=== PATIENT | male | born 1965 | race Caucasian/White ===

== ENCOUNTER 2018-11-22 09:31 | Inpatient (IN) | payer MEDICARE ==
[~2018-11-22] VITALS: Ht 182.9 cm; Wt 183.7 kg
--- OUTSIDE RECORDS SUMMARY | 2018-11-22 09:33 | XMS REPORT ---
Author Author Benjamin Gayle Organization [employer] Address Unknown Phone Unavailable Care Team Providers Care Social Worker Delinquency Prevention Name Role Phone Benjamin Gayle CP Unavailable Allergies, Adverse Reactions, Alerts Substance Reaction Event Type N.K.D.A. Info Not Available Non Drug Allergy Problems Problem Type Condition Code Onset Dates Condition Status Assessment Type 2 diabetes mellitus without complication, without long-term current use of insulin E11.9 Active Assessment Benign hypertension I10 Active Assessment BMI 50.0-59.9, adult Z68.43 Active Problem Benign hypertension I10 Active Problem Kidney stones N20.0 Active Problem BMI 50.0-59.9, adult Z68.43 Active Problem Type 2 diabetes mellitus without complication, without long-term current use of insulin E11.9 Active Problem Morbid obesity due to excess calories E66.01 Active Problem Bipolar disorder, in full remission, most recent episode depressed F31.76 Active Problem Uncontrolled hypertension I10 Active Medications Medication Code System Code Instructions Start Date End Date Status Dosage Quetiapine Fumarate [facility] 02585225903 300 MG Orally at bedtime Active 2 tablet Glimepiride ND 63542006103 4 MG Orally Once a day Active 1 tablet with breakfast or the first main meal of the day Amlodipine Besylate ND 61089764367 10 MG Orally Once a day Apr 12, 2018 Active 1 tablet Banophen ND 42629802039 50 mg Orally at bedtime Active 2 tablet BuPROPion HCl (XL) ND 64267062336 150 MG Orally Once a day Active 3 tablet in the morning Escitalopram Oxalate ND 13788642119 20 mg Orally BID Active 1 tablet Levemir FlexTouch ND 46070705379 100 UNIT/ML Subcutaneous once a day Active 80 units Vital Signs Date/Time: October 03, 2018 BMI 53.84 Index Weight 397 lbs Height 72 in Temperature 97.9 F Blood Pressure Diastolic 82 mm Hg Blood Pressure Systolic 133 mm Hg Results Name Result Date Reference Range Unit Abnormality Flag COMPREHENSIVE METABOLIC PANEL ----ALBUMIN/GLOBULIN RATIO 1.1 20181003 1.0-2.5 (calc) N ----GLOBULIN 3.6 20181003 1.9-3.7 g/dL (calc) N ----ALKALINE PHOSPHATASE 90 20181003 40-115 U/L N ----BILIRUBIN, TOTAL 0.3 20181003 0.2-1.2 mg/dL N ----CHLORIDE 103 20181003 98-110 mmol/L N ----ALT 10 20181003 9-46 U/L N ----POTASSIUM 4.5 76299747 3.5-5.3 mmol/L N ----AST 10 20181003 10-35 U/L N ----SODIUM 149 20181003 135-146 mmol/L H ----BUN/CREATININE RATIO 15 20181003 6-22 (calc) N ----eGFR 53 20181003 > OR=60 mL/min/1.73m2 L ----CALCIUM 9.5 11409632 8.6-10.3 mg/dL N ----CARBON DIOXIDE 33 20181003 20-32 mmol/L H ----ALBUMIN 3.8 20181003 3.6-5.1 g/dL N ----PROTEIN, TOTAL 7.4 46917135 6.1-8.1 g/dL N ----GLUCOSE 62 20181003 65-139 mg/dL L ----UREA NITROGEN (BUN) 26 20181003 7-25 mg/dL H ----CREATININE 1.69 00377178 0.70-1.33 mg/dL H ----eGFR NON-AFR. [facility] 46 20181003 > OR=60 mL/min/1.73m2 L HEMOGLOBIN A1c ----HEMOGLOBIN A1c 7.1 [id number] <5.7 % of total Hgb H Summary Purpose [employer]ClinicalWorks Submission
--- OUTSIDE RECORDS SUMMARY | 2018-11-22 09:33 | XMS REPORT ---
Author Devon Masters Organization [employer] Address Unknown Phone Unavailable Care Team Providers Care Photo Mask Pattern Generator Name Role Phone Devon Cruz CP Unavailable Allergies No Known Allergies Problems Problem Type Condition Code Onset Dates Condition Status Problem Peripheral vascular disease I73.9 Active Problem Venous (peripheral) insufficiency I87.2 Active Problem Type 2 diabetes mellitus without complication, unspecified senior living insulin use status E11.9 Active Problem Decubitus ulcer of left foot, stage 4 L89.894 Active Medications No Known Medications Results No Known Results Summary Purpose [employer]ClinicalWorks Submission
--- OUTSIDE RECORDS SUMMARY | 2018-11-22 09:33 | XMS REPORT ---
Author Author Benjamin Gayle Organization [employer] Address Unknown Phone Unavailable Care Team Providers Care Women'S Studies Professor Name Role Phone Benjamin Gayle CP Unavailable Allergies, Adverse Reactions, Alerts Substance Reaction Event Type N.K.D.A. Info Not Available Non Drug Allergy Problems Problem Type Condition Code Onset Dates Condition Status Assessment Kidney stones N20.0 Active Assessment Uncontrolled hypertension I10 Active Assessment Type 2 diabetes mellitus without complication, without long-term current use of insulin E11.9 Active Assessment Morbid obesity due to excess calories E66.01 Active Problem Uncontrolled hypertension I10 Active Problem Type 2 diabetes mellitus without complication, without long-term current use of insulin E11.9 Active Problem Bipolar disorder, in full remission, most recent episode depressed F31.76 Active Assessment Annual physical exam Z00.00 Active Problem Morbid obesity due to excess calories E66.01 Active Problem Kidney stones N20.0 Active Medications Medication Code System Code Instructions Start Date End Date Status Dosage Glimepiride [facility] 90520342004 4 MG Orally Once a day Active 1 tablet with breakfast or the first main meal of the day Banophen ND 12665914916 50 mg Orally at bedtime Active 2 tablet BuPROPion HCl (XL) ND 86271142675 150 MG Orally Once a day Active 3 tablet in the morning Levemir FlexTouch [facility] 27746658232 100 UNIT/ML Subcutaneous once a day Active 80 units Amlodipine Besylate ND 29501448264 10 MG Orally Once a day Apr 12, 2018 Active 1 tablet Escitalopram Oxalate ND 87234513773 20 mg Orally BID Active 1 tablet Quetiapine Fumarate ND 17670420847 300 MG Orally at bedtime Active 2 tablet Vital Signs Date/Time: June 08, 2018 BMI 54.24 Index Weight 400 lbs Height 72 in Temperature 98.8 F Blood Pressure Diastolic 104 mm Hg Blood Pressure Systolic 181 mm Hg Results Name Result Date Reference Range Unit Abnormality Flag LIPID PANEL ----TRIGLYCERIDES 138 [id number] <150 mg/dL N ----LDL-CHOLESTEROL 89 00419708 mg/dL (calc) N ----CHOL/HDLC RATIO 3.3 20180608 <5.0 (calc) N ----NON HDL CHOLESTEROL 113 20180608 <130 mg/dL (calc) N ----CHOLESTEROL, TOTAL 162 20180608 <200 mg/dL N ----HDL CHOLESTEROL 49 20180608 >40 mg/dL N CBC (INCLUDES DIFF/PLT) ----ABSOLUTE EOSINOPHILS 220 20180608 15-500 cells/uL N ----MCV 78.5 03163014 80.0-100.0 fL L ----ABSOLUTE MONOCYTES 814 20180608 200-950 cells/uL N ----HEMATOCRIT 40.5 60084615 38.5-50.0 % N ----MCHC 33.3 20180608 32.0-36.0 g/dL N ----ABSOLUTE LYMPHOCYTES 1881 20180608 850-3900 cells/uL N ----MCH 26.2 45853523 27.0-33.0 pg L ----ABSOLUTE NEUTROPHILS 7964 20180608 0050-1143 cells/uL H ----MONOCYTES 7.4 07417189 % N ----WHITE BLOOD CELL COUNT 11.0 34040122 3.8-10.8 Thousand/uL H ----LYMPHOCYTES 17.1 75566963 % N ----NEUTROPHILS 72.4 13133498 % N ----HEMOGLOBIN 13.5 15542093 13.2-17.1 g/dL N ----ABSOLUTE BASOPHILS 121 20180608 0-200 cells/uL N ----RED BLOOD CELL COUNT 5.16 20180608 4.20-5.80 Million/uL N ----BASOPHILS 1.1 46018238 % N ----MPV 11.0 77677354 7.5-12.5 fL N ----EOSINOPHILS 2.0 08208429 % N ----RDW 13.0 45271133 11.0-15.0 % N ----PLATELET COUNT 334 51755306 140-400 Thousand/uL N COMPREHENSIVE METABOLIC PANEL ----ALBUMIN/GLOBULIN RATIO 1.2 20180608 1.0-2.5 (calc) N ----GLOBULIN 3.4 42362394 1.9-3.7 g/dL (calc) N ----ALKALINE PHOSPHATASE 100 20180608 40-115 U/L N ----BILIRUBIN, TOTAL 0.3 20180608 0.2-1.2 mg/dL N ----CHLORIDE 100 20180608 98-110 mmol/L N ----ALT 13 20180608 9-46 U/L N ----POTASSIUM 3.8 20180608 3.5-5.3 mmol/L N ----AST 13 20180608 10-35 U/L N ----SODIUM 138 20180608 135-146 mmol/L N ----BUN/CREATININE RATIO NOT APPLICABLE 20180608 6-22 (calc) ----eGFR 77 20180608 > OR=60 mL/min/1.73m2 N ----CALCIUM 9.2 20180608 8.6-10.3 mg/dL N ----CARBON DIOXIDE 26 20180608 20-32 mmol/L N ----ALBUMIN 4.1 20180608 3.6-5.1 g/dL N ----PROTEIN, TOTAL 7.5 20180608 6.1-8.1 g/dL N ----GLUCOSE 181 20180608 65-99 mg/dL H ----UREA NITROGEN (BUN) 19 20180608 7-25 mg/dL N ----CREATININE 1.25 20180608 0.70-1.33 mg/dL N ----eGFR NON-AFR. [facility] 66 20180608 > OR=60 mL/min/1.73m2 N HEMOGLOBIN A1c ----HEMOGLOBIN A1c 8.8 17896260 <5.7 % of total Hgb H Summary Purpose eClinicalWorks Submission
--- OUTSIDE RECORDS SUMMARY | 2018-11-22 09:33 | XMS REPORT | Continuity of Care Document ---
Author Author [place] Address Unknown Phone Unavailable Care Team Providers Care Specialty Cook Name Role Phone [employer] studentSN Unavailable Unavailable Problems Problem Status Onset Date Classification Date Reported Comments Source Uncontrolled hypertension Active Problem 10/11/2018 Enbrianna Holger Type 2 diabetes mellitus without complication, without long-term current use of insulin Active Diagnosis 10/11/2018 Olga Wren Bipolar disorder, in full remission, most recent episode depressed Active Problem 10/11/2018 Olga Wren Kidney stones Active Problem 10/11/2018 Olga Wren Morbid obesity due to excess calories Active Problem 10/11/2018 Olga Wren Peripheral vascular disease Active Problem 06/26/2016 [facility] Venous (peripheral) insufficiency Active Problem 06/26/2016 [facility] Type 2 diabetes mellitus without complication, unspecified alf insulin use status Active Problem 06/26/2016 [facility] Decubitus ulcer of left foot, stage 4 Active Problem 06/26/2016 [facility] Benign hypertension Active Diagnosis 10/11/2018 Olga Wren BMI 50.0-59.9, adult Active Diagnosis 10/11/2018 Olga Wren Medications Medication Details Route Status Patient Instructions Ordering Provider Order Date Source Amlodipine Besylate 1 tablet Orally Active 10 MG Orally Once a day [facility] 04/12/2018 Olga Wren Quetiapine Fumarate 2 tablet Orally Active 300 MG Orally at bedtime [facility] Olga Wren Glimepiride 1 tablet with breakfast or the first main meal of the day Orally Active 4 MG Orally Once a day [facility] Olga Wren Banophen 2 tablet Orally Active 50 mg Orally at bedtime [facility] Olga Wren BuPROPion HCl (XL) 3 tablet in the morning Orally Active 150 MG Orally Once a day [facility] Olga Wren Escitalopram Oxalate 1 tablet Orally Active 20 mg Orally BID [facility] Enayet Rahim Levemir FlexTouch 80 units Subcutaneous Active 100 UNIT/ML Subcutaneous once a day [place] Enayet Rahim Allergies, Adverse Reactions, Alerts Substance Category Reaction Severity Reaction type Status Date Reported Comments Source N.K.D.A. Adverse Reaction Info Not Available Adverse Reaction Active 10/03/2018 Enayet Rahim Immunizations No Data Provided for This Section Results No Data Provided for This Section Pathology Reports No Data Provided for This Section Diagnostic Reports No Data Provided for This Section Consultation Notes No Data Provided for This Section Discharge Summaries No Data Provided for This Section History and Physicals No Data Provided for This Section Vital Signs Vital Sign Value Date Comments Source Weight 397 10/03/2018 Enayet Rahim Height 72 10/03/2018 Enayet Rahim Temperature Oral (F) 97.9 F 10/03/2018 Enayet Rahim Diastolic (mm Hg) 82 10/03/2018 Enayet Rahim Systolic (mm Hg) 133 10/03/2018 Enayet Rahim Weight 400 06/08/2018 Enayet Rahim Height 72 06/08/2018 Enayet Rahim Temperature Oral (F) 98.8 F 06/08/2018 Enayet Rahim Diastolic (mm Hg) 104 06/08/2018 Enayet Rahim Systolic (mm Hg) 181 06/08/2018 Enayet Rahim Encounters No Data Provided for This Section Procedures No Data Provided for This Section Assessment and Plan No Data Provided for This Section Plan of Care No Data Provided for This Section Social History No Data Provided for This Section Family History No Data Provided for This Section Advance Directives No Data Provided for This Section Functional Status No Data Provided for This Section
--- OUTSIDE RECORDS SUMMARY | 2018-11-22 09:33 | XMS REPORT ---
Author Author Benjamin Gayle Organization [employer] Address Unknown Phone Unavailable Care Team Providers Care Statistical Geneticist Name Role Phone Benjamin Gayle CP Unavailable Allergies No Known Allergies Problems Problem Type Condition Code Onset Dates Condition Status Problem Uncontrolled hypertension I10 Active Problem Type 2 diabetes mellitus without complication, without long-term current use of insulin E11.9 Active Problem Bipolar disorder, in full remission, most recent episode depressed F31.76 Active Assessment Kidney stones N20.0 Active Problem Morbid obesity due to excess calories E66.01 Active Problem Kidney stones N20.0 Active Medications Medication Code System Code Instructions Start Date End Date Status Dosage Amlodipine Besylate [facility] 15813941363 10 MG Orally Once a day Apr 12, 2018 Active 1 tablet Results No Known Results Summary Purpose eClinicalWorks Submission
--- OUTSIDE RECORDS SUMMARY | 2018-11-22 09:33 | XMS REPORT ---
Author Devon Masters Organization [employer] Address Unknown Phone Unavailable Care Team Providers Care Geophysical Operator Name Role Phone Devon Cruz CP Unavailable Allergies No Known Allergies Problems Problem Type Condition Code Onset Dates Condition Status Problem Peripheral vascular disease I73.9 Active Problem Venous (peripheral) insufficiency I87.2 Active Problem Type 2 diabetes mellitus without complication, unspecified retirement insulin use status E11.9 Active Problem Decubitus ulcer of left foot, stage 4 L89.894 Active Medications No Known Medications Results No Known Results Summary Purpose eClinicalWorks Submission
[2018-11-22] MEDS ORDERED: AMLODIPINE BESY10 MG PO (10:44)
[2018-11-22] MEDS ORDERED: GLIMEPIRIDE2 MG PO (10:44)
[2018-11-22] MEDS ORDERED: SEROQUEL25 MG PO (10:44)
[2018-11-22] MEDS ORDERED: BUPROPION HCL75 MG PO (10:44)
[2018-11-22] MEDS ORDERED: LEXAPRO10 MG PO (10:44)
[2018-11-22] MEDS ORDERED: CEFTRIAXONE SOD 1 GM/NS 50 ML 100 ML IV ONE (10:49)
[2018-11-22] MEDS ORDERED: GENTAMICIN 80MG/NS 100 ML 200 ML IV ONE (10:49)
[2018-11-22 11:00] LABS: ANION GAP 15.5 mmol/L (8-16); CALCIUM 9.5 mg/dL (8.4-10.2); CREATININE, SERUM 1.66 mg/dL (0.72-1.25); POTASSIUM 3.5 mmol/L (3.5-5.1)
--- NOTE | 2018-11-22 11:58 | Diagnostic Imaging Report ---
Exam: KUB - 2 views Indication: Preoperative Comparison: None Findings: Bilateral internal nephroureteral stents in place. Left renal calculi measure up to 21 mm. Area of increased density overlying the lower pole of the right renal silhouette measuring up to 17 mm but is severely obscured by patient motion artifact. This may represent a calculus versus intraluminal bowel contents. Nonobstructive bowel gas pattern. Degenerative changes of the lower lumbar spine. Severe pubic diastasis which may be postoperative, posttraumatic, or congenital. Impression: Bilateral internal nephroureteral stents in place. Left renal calculi up to 21 mm. Increased density overlying lower pole of right kidney measures up to 17 mm but is severely limited by patient motion artifact and may represent calculus versus intraluminal bowel content. Signed by: Mili Crawford MD on 11/22/2018 11:55 AM
[2018-11-22] MEDS ORDERED: B&O 60MG R/S 60 MG SUPP PR ONE (13:11)
[2018-11-22] MEDS ORDERED: IOPAMIDOL 610MG/1ML 300 MG/ML VIAL IV ONE (13:11)
[2018-11-22] MEDS ORDERED: SUGAMMADEX SODIUM 200 MG/2 ML VIAL IV ONE (14:32)
[2018-11-22] MEDS: SODIUM CHLORIDE 0.9% 1000ML 1,000 ML IV SCH ×2 (14:33→18:42)
[2018-11-22] MEDS ORDERED: ACETAMINOPHEN/CODEINE 300MG - 30MG TAB PO PRN (14:45)
[2018-11-22] MEDS ORDERED: B&O 60MG R/S 60 MG SUPP PR PRN (14:45)
[2018-11-22] MEDS ORDERED: ONDANSETRON HCL INJ 2MG/ML 2ML 2 MG/ML VIAL IV PRN (14:45)
[2018-11-22] MEDS ORDERED: DIPHENHYDRAMINE HCL 25 MG CAP PO PRN (14:45)
[2018-11-22] MEDS ORDERED: FENTANYL CITRATE/PF 100MCG/2 ML INJ ONE (14:55)
[2018-11-22] MEDS ORDERED: MIDAZOLAM HCL 2 MG/2 ML VIAL ONE (14:55)
--- OUTSIDE RECORDS SUMMARY | 2018-11-22 14:59 | XMS REPORT | Continuity of Care Document ---
Author Author [employer] Address Unknown Phone Unavailable Care Team Providers Care Lease Purchase Driver Name Role Phone [employer] Unavailable Unavailable Problems Problem Status Onset Date [...] Wren Peripheral vascular disease Active Problem 06/26/2016 [facility] Venous (peripheral) insufficiency Active Problem 06/26/2016 [facility] Type 2 diabetes mellitus without complication, unspecified snf insulin use status Active Problem 06/26/2016 [facility] Decubitus ulcer of left foot, stage 4 Active Problem 06/26/2016 [facility] Benign hypertension Active Diagnosis 10/11/2018 Olga Wren BMI 50.0-59.9, adult Active Diagnosis 10/11/2018 Olga Wren Medications Medication Details Route Status Patient Instructions Ordering Provider Order Date Source Amlodipine Besylate 1 tablet Orally Active 10 MG Orally Once a day [facility] 04/12/2018 Olga Wren Quetiapine Fumarate 2 tablet Orally Active 300 MG Orally at bedtime [facility] Olga Wren Glimepiride 1 tablet with breakfast or the first main meal of the day Orally Active 4 MG Orally Once a day [facility] Olga Wren Banophen 2 tablet Orally Active 50 mg Orally at bedtime [facility] Olga Wren BuPROPion HCl (XL) 3 tablet in the morning Orally Active 150 MG Orally Once a day [facility] Olga Wren Escitalopram Oxalate 1 tablet Orally Active 20 mg Orally BID [facility] Enayet Rahim Levemir FlexTouch 80 units Subcutaneous [...]
[2018-11-22] MEDS ORDERED: PROPOFOL IV EMULSION 10 MG/ML 20 ML VIAL ONE (15:05)
[2018-11-22] MEDS ORDERED: ONDANSETRON HCL INJ 2MG/ML 2ML 2 MG/ML VIAL ONE (15:05)
[2018-11-22] MEDS ORDERED: ROCURONIUM BROMIDE 10 MG/ML 5ML VIAL ONE (15:05)
[2018-11-22] MEDS ORDERED: SUCCINYLCHOLINE 200 MG/10 ML SYR ONE (15:05)
[2018-11-22] MEDS ORDERED: LIDOCAINE HCL 2% LOCAL INJ 5 ML SDV VIAL INJ ONE (15:05)
[2018-11-22] MEDS ORDERED: NEOSTIGMINE 5 MG/5ML SYR ONE (15:05)
[2018-11-22] MEDS ORDERED: DEXAMETHASONE SOD PHOS INJ 4 MG/ML VIAL ONE (15:05)
[2018-11-22] MEDS ORDERED: SEVOFLURANE INHAL SOLN 250 ML PEN BTL ONE (15:05)
[2018-11-22] MEDS ORDERED: GLYCOPYRROLATE INJ 1MG/ 5 ML SYR ONE (15:05)
[2018-11-22] MEDS ORDERED: EPHEDRINE SULFATE INJ 50 MG/10 ML SYR ONE (15:05)
[2018-11-22 15:22] VITALS: BP 175/80
--- NOTE | 2018-11-22 15:30 | NUR ---
Received patient from PACU. Patient awake, alert, respiration even and unlabored without SOB. Orientated patient to room, call light in reach. family friends at bedside.
[2018-11-22 15:45] VITALS: BP 175/88
[2018-11-22] MEDS: DOCUSATE SODIUM 100 MG CAP PO SCH (17:16)
[2018-11-22] MEDS: PHENAZOPYRIDINE HCL 100 MG TAB PO SCH (17:17)
[2018-11-22] MEDS ORDERED: LEVEMIR100 UNIT/1 (17:25)
--- NOTE | 2018-11-22 18:57 | NUR ---
Report given to floor refinisher. Patient awake lying in bed with eyes open. respiration even and unlabored without SOB. Call light in reach.
[2018-11-22 19:54] VITALS: BP 162/83
[2018-11-22 19:58] VITALS: BP 162/83
[2018-11-22] MEDS: PIPERACILLIN/TAZO 2.25 GM 50 ML IV SCH (21:36)
[2018-11-23] VITALS (9 sets, daily range): BP systolic 117–179; BP diastolic 60–88
[2018-11-23] MEDS: PIPERACILLIN/TAZO 2.25 GM 50 ML IV SCH ×3 (05:36→22:36)
[2018-11-23 06:46] LABS: BASOPHILS # (AUTO) 0.1 (0.0-0.1); EOSINOPHILS # (AUTO) 0.2 (0.0-0.4); EOSINOPHILS % 1.5 % (0.0-6.0); HEMATOCRIT 37.5 % (38.2-49.6); HEMOGLOBIN 11.6 g/dL (14.0-18.0); LYMPHOCYTES # (AUTO) 2.1 (1.0-3.2); LYMPHOCYTES % 18.7 % (18.0-39.1); MEAN CORPUSCULAR HEMOGLOBIN 25.8 pg (28-32); MEAN CORPUSCULAR HGB CONC 30.9 g/dL (31-35); MEAN CORPUSCULAR VOLUME 83.5 fL (81-99); MONOCYTES # (AUTO) 0.9 (0.2-0.8); MONOCYTES % 7.7 % (4.4-11.3); NEUTROPHILS % 70.7 % (38.7-80.0); PLATELET COUNT 289 x10e3/uL (140-360); RED BLOOD COUNT 4.49 x10e6/uL (4.3-5.7); RED CELL DISTRIBUTION WIDTH 15.9 % (11.7-14.4)
--- NOTE | 2018-11-23 07:00 | NUR ---
BEDSIDE SHIFT REPORT RECEIVED FROM WELDER OXYHYDROGEN RN. PT DENIES NEEDS AT THIS TIME.
[2018-11-23 07:09] LABS: ANION GAP 15.6 mmol/L (8-16); CALCIUM 9.2 mg/dL (8.4-10.2); CREATININE, SERUM 1.5 mg/dL (0.72-1.25); POTASSIUM 3.6 mmol/L (3.5-5.1)
[2018-11-23] MEDS ORDERED: HYDROCODONE/APAP 10MG-325MG TAB PO PRN (08:45)
[2018-11-23] MEDS ORDERED: DEXTROSE 50% SYRINGE 50 ML IV PRN (08:45)
[2018-11-23] MEDS ORDERED: ACETAMINOPHEN 325 MG TAB PO PRN (08:45)
[2018-11-23] MEDS ORDERED: QUETIAPINE FUMARATE 100 MG TAB PO SCH (09:30)
[2018-11-23] MEDS: AMLODIPINE BESYLATE 10 MG TAB PO SCH (09:38)
[2018-11-23] MEDS: DOCUSATE SODIUM 100 MG CAP PO SCH ×2 (09:38→17:45)
[2018-11-23] MEDS: ESCITALOPRAM OXALATE 10 MG TAB PO SCH (09:38)
[2018-11-23] MEDS: PHENAZOPYRIDINE HCL 100 MG TAB PO SCH ×3 (09:39→17:45)
[2018-11-23] MEDS: BUPROPION HCL SR 150 MG TAB PO SCH ×3 (09:39→21:25)
[2018-11-23] MEDS: QUETIAPINE FUMARATE 100 MG TAB PO SCH ×3 (09:39→21:25)
[2018-11-23] MEDS: INSULIN LISPRO 100 UNIT/1 ML 3ML VIAL SQ SCH ×3 (11:30→21:34)
--- NOTE | 2018-11-23 14:00 | NUR ---
PT OFF THE FLOOR TO RAREFORM.
--- NOTE | 2018-11-23 14:49 | NUR ---
PT NOT CURRENTLY IN ROOM TO PREFORM DPA
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
--- NOTE | 2018-11-23 15:29 | NUR ---
PT BACK TO THE FLOOR. PT DENIES NEEDS AT THIS TIME.
--- NOTE | 2018-11-23 20:46 | Diagnostic Imaging Report ---
Renal Scan with Lasix Washout Clinical information: Bilateral renal calculi; bilateral ureteral stents recently placed. Technique: Following intravenous administration of 10 mCi of Tc-99m MAG3, dynamic images of the kidneys in the posterior projection were obtained through 40 minutes. Lasix 40 mg was administered intravenously at 10 minutes post injection of the tracer. Report: Left kidney: Perfusion of the left kidney is prompt. The kidney has a distorted reniform shape with thinning of the renal cortex. The kidney is overall reduced in size. Extraction of tracer from the blood pool is decreased. Clearance of tracer from the renal parenchyma is prolonged and is not complete by the end of the study. The pelvicalyceal system does not appear dilated. Increased pooling of tracer is seen within a dilated calyx in the upper pole. No net drainage of tracer from the pelvicalyceal system is seen prior to administration of Lasix. No washout of tracer from the dilated upper pole iain is seen prior to administration of Lasix. Washout of tracer from the pelvicalyceal system following administration of Lasix is rapid with a T-1/2 of 10 minutes (normal less than 15 minutes). No significant stasis of tracer is seen within the left ureter. Right kidney: Perfusion to the right kidney is prompt. The right kidney has distorted reniform shape with thinning of the renal. Extraction of tracer by the renal parenchyma is decreased. The kidney is overall reduced in size and is slightly smaller than the left kidney. Clearance of tracer from the renal parenchyma is prolonged but is complete by the end of the study. The pelvicalyceal system does not appear dilated. Some pooling of tracer is present in a mildly dilated upper pole iain. No net drainage of tracer from the pelvicalyceal system is seen prior to administration of Lasix. Washout of tracer from the pelvicalyceal system following administration of Lasix is adequate with a T-1/2 of 12 minutes (normal less than 15 minutes). No significant stasis of tracer is seen within the right ureter. Differential renal function: The left kidney contributes 56% of total renal function and the right kidney contributes 44% (normal 43-57%). Impression: 1. Medical renal disease is present in the left kidney evidenced by reduced size of the kidney and decreased clearance of tracer from the renal parenchyma. No hydronephrosis is present although there is a dilated iain in the upper pole. Physiologically significant obstruction of the pelvicalyceal system cannot be adequately evaluated by the Lasix washout method as the pelvicalyceal system does not appear to fill to near capacity, however, obstruction is suspected given that tracer in the dilated upper pole iain does not washout. The overall function of the kidney is worse than the right kidney evidenced by the poor clearance of tracer from the renal parenchyma. Chronic obstructive uropathy appears to be present. 2. Medical renal disease is present in the right kidney. The differential function of 44% is due to the smaller size of the right kidney compared to the left. The tubular function of the right kidney is better than that in the left kidney evidenced by the better clearance of tracer form the renal parenchyma. No hydronephrosis is present. A dilated iain in the upper pole drains adequately. No physiologically significant obstruction of the renal collecting system is present. Signed by: Dr. Jessica Knox M.D. on 11/23/2018 8:43 PM
[2018-11-23] MEDS: INSULIN GLARGINE 100 UNITS/ML VIAL SQ SCH (21:00)
[2018-11-24] VITALS (7 sets, daily range): BP systolic 131–147; BP diastolic 63–85
[2018-11-24] MEDS: PIPERACILLIN/TAZO 2.25 GM 50 ML IV SCH ×3 (06:00→22:17)
[2018-11-24 06:36] LABS: BASOPHILS # (AUTO) 0.1 (0.0-0.1); EOSINOPHILS # (AUTO) 0.3 (0.0-0.4); EOSINOPHILS % 2.4 % (0.0-6.0); HEMATOCRIT 38.3 % (38.2-49.6); HEMOGLOBIN 11.8 g/dL (14.0-18.0); LYMPHOCYTES # (AUTO) 2.4 (1.0-3.2); LYMPHOCYTES % 23.2 % (18.0-39.1); MEAN CORPUSCULAR HEMOGLOBIN 25.5 pg (28-32); MEAN CORPUSCULAR HGB CONC 30.8 g/dL (31-35); MEAN CORPUSCULAR VOLUME 82.9 fL (81-99); MONOCYTES # (AUTO) 0.9 (0.2-0.8); MONOCYTES % 8.9 % (4.4-11.3); NEUTROPHILS # (AUTO) 6.6 (2.1-6.9); NEUTROPHILS % 64.2 % (38.7-80.0); PLATELET COUNT 279 x10e3/uL (140-360); RED BLOOD COUNT 4.62 x10e6/uL (4.3-5.7)
--- NOTE | 2018-11-24 07:00 | NUR ---
BEDSIDE SHIFT REPORT RECEIVED FROM JBOSS DEVELOPER RN. PT DENIES NEEDS AT THIS TIME.
[2018-11-24 07:01] LABS: ANION GAP 12.3 mmol/L (8-16); CALCIUM 9.5 mg/dL (8.4-10.2); CREATININE, SERUM 1.62 mg/dL (0.72-1.25); POTASSIUM 3.3 mmol/L (3.5-5.1)
[2018-11-24] MEDS: INSULIN LISPRO 100 UNIT/1 ML 3ML VIAL SQ SCH ×4 (07:30→20:55)
[2018-11-24] MEDS: ESCITALOPRAM OXALATE 10 MG TAB PO SCH (09:06)
[2018-11-24] MEDS: DOCUSATE SODIUM 100 MG CAP PO SCH ×2 (09:06→17:25)
[2018-11-24] MEDS: AMLODIPINE BESYLATE 10 MG TAB PO SCH (09:07)
[2018-11-24] MEDS: QUETIAPINE FUMARATE 100 MG TAB PO SCH ×3 (09:07→20:55)
[2018-11-24] MEDS: PHENAZOPYRIDINE HCL 100 MG TAB PO SCH ×3 (09:07→17:25)
[2018-11-24] MEDS: BUPROPION HCL SR 150 MG TAB PO SCH ×3 (09:07→20:55)
--- NOTE | 2018-11-24 12:00 | NUR ---
EDUCATED ABOUT IMM, SIGNED, FILED IN CHART, WITH COPY LEFT WITH FAMILY AT BEDSIDE.
[2018-11-24] MEDS ORDERED: POTASSIUM CHLORIDE 10MEQ EA PO ONE (14:00)
--- NOTE | 2018-11-24 19:11 | NUR ---
WALKING ROUNDS PERFORMED, RECEIVED PT SITTING IN RECLINER, AAOX3, RR EVEN AND NON-LABORED, ON ROOM AIR. NO S/SX OF DISTRESS NOTED. ANTERIOR ABD INCISION CDI, (L) ABDOMINAL ANIYAH DRAIN CDI. LEFT PT SITTING IN RECLINER. CALL LIGHT WITHIN REACH. Addendum: 11/25/18 at 0016 by Radha Cramer RN PLEASE DISREGARD NOTE.
--- NOTE | 2018-11-24 19:11 | NUR ---
WALKING ROUNDS PERFORMED, RECEIVED PT SITTING IN RECLINER, AAOX3, RR EVEN AND NON-LABORED, ON ROOM AIR. NO S/SX OF DISTRESS NOTED. LEFT PT SITTING IN RECLINER. CALL LIGHT WITHIN REACH.
[2018-11-24] MEDS: INSULIN GLARGINE 100 UNITS/ML VIAL SQ SCH (20:55)
--- NOTE | 2018-11-24 20:58 | NUR ---
PT TRANSPORTED WITH BELONGINGS TO ROOM 287 BY HOSPITAL BED. PT IN STABLE CONDITION. NO S/SX OF DISTRESS NOTED.
[2018-11-24] MEDS ORDERED: SODIUM CHLORIDE 0.9% 250ML 250 ML ONE (22:10)
[2018-11-25] VITALS (7 sets, daily range): BP systolic 125–169; BP diastolic 74–94
[2018-11-25] MEDS: PIPERACILLIN/TAZO 2.25 GM 50 ML IV SCH (05:33)
[2018-11-25 05:59] LABS: BASOPHILS # (AUTO) 0.1 (0.0-0.1); BASOPHILS % 1.1 % (0.0-1.0); EOSINOPHILS # (AUTO) 0.2 (0.0-0.4); EOSINOPHILS % 2.7 % (0.0-6.0); HEMATOCRIT 37.5 % (38.2-49.6); HEMOGLOBIN 11.6 g/dL (14.0-18.0); LYMPHOCYTES # (AUTO) 2.1 (1.0-3.2); LYMPHOCYTES % 23.3 % (18.0-39.1); MEAN CORPUSCULAR HGB CONC 30.9 g/dL (31-35); MEAN CORPUSCULAR VOLUME 83.9 fL (81-99); MONOCYTES # (AUTO) 0.7 (0.2-0.8); MONOCYTES % 8.2 % (4.4-11.3); NEUTROPHILS # (AUTO) 5.7 (2.1-6.9); NEUTROPHILS % 64.2 % (38.7-80.0); PLATELET COUNT 257 x10e3/uL (140-360); RED BLOOD COUNT 4.47 x10e6/uL (4.3-5.7); RED CELL DISTRIBUTION WIDTH 15.8 % (11.7-14.4)
[2018-11-25 06:16] LABS: ANION GAP 14.4 mmol/L (8-16); CALCIUM 9.4 mg/dL (8.4-10.2); CREATININE, SERUM 1.39 mg/dL (0.72-1.25); POTASSIUM 3.4 mmol/L (3.5-5.1)
[2018-11-25] MEDS: INSULIN LISPRO 100 UNIT/1 ML 3ML VIAL SQ SCH ×4 (07:30→20:06)
[2018-11-25] MEDS: BUPROPION HCL SR 150 MG TAB PO SCH ×3 (09:19→20:50)
[2018-11-25] MEDS: DOCUSATE SODIUM 100 MG CAP PO SCH ×2 (09:19→17:01)
[2018-11-25] MEDS: AMLODIPINE BESYLATE 10 MG TAB PO SCH (09:19)
[2018-11-25] MEDS: QUETIAPINE FUMARATE 100 MG TAB PO SCH ×3 (09:19→20:50)
[2018-11-25] MEDS: ESCITALOPRAM OXALATE 10 MG TAB PO SCH (09:19)
[2018-11-25] MEDS: PHENAZOPYRIDINE HCL 100 MG TAB PO SCH ×3 (09:19→17:01)
--- NOTE | 2018-11-25 19:56 | NUR ---
Received change of shift report from AM nurse. Walking rounds completed.
[2018-11-25] MEDS: INSULIN GLARGINE 100 UNITS/ML VIAL SQ SCH (20:50)
[2018-11-25] MEDS: MEROPENEM 1GM 100 ML IV SCH (20:50)
--- NOTE | 2018-11-25 22:00 | NUR ---
Patient AAOx3. Up ambulating in room. Denies pain at this time. Grady to bedside drainage intact. IV intact left hand.Patient using IS as prescribed. BG at 117 SS not given per order.
[2018-11-26] VITALS (8 sets, daily range): BP systolic 132–168; BP diastolic 65–85
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
--- NOTE | 2018-11-26 03:17 | NUR ---
Patient resting quitly at this time.
[2018-11-26 06:38] LABS: BASOPHILS # (AUTO) 0.1 (0.0-0.1); BASOPHILS % 1.3 % (0.0-1.0); EOSINOPHILS # (AUTO) 0.3 (0.0-0.4); EOSINOPHILS % 3.1 % (0.0-6.0); HEMATOCRIT 37.6 % (38.2-49.6); HEMOGLOBIN 11.7 g/dL (14.0-18.0); LYMPHOCYTES # (AUTO) 1.9 (1.0-3.2); LYMPHOCYTES % 20.2 % (18.0-39.1); MEAN CORPUSCULAR HEMOGLOBIN 25.8 pg (28-32); MEAN CORPUSCULAR HGB CONC 31.1 g/dL (31-35); MEAN CORPUSCULAR VOLUME 82.8 fL (81-99); MONOCYTES # (AUTO) 0.8 (0.2-0.8); MONOCYTES % 8.5 % (4.4-11.3); NEUTROPHILS # (AUTO) 6.2 (2.1-6.9); NEUTROPHILS % 66.5 % (38.7-80.0); PLATELET COUNT 266 x10e3/uL (140-360); RED BLOOD COUNT 4.54 x10e6/uL (4.3-5.7); RED CELL DISTRIBUTION WIDTH 15.8 % (11.7-14.4)
[2018-11-26 06:58] LABS: ANION GAP 13.4 mmol/L (8-16); CALCIUM 9.2 mg/dL (8.4-10.2); CREATININE, SERUM 1.44 mg/dL (0.72-1.25); POTASSIUM 3.4 mmol/L (3.5-5.1)
[2018-11-26] MEDS: INSULIN LISPRO 100 UNIT/1 ML 3ML VIAL SQ SCH ×4 (07:30→20:25)
[2018-11-26] MEDS: DOCUSATE SODIUM 100 MG CAP PO SCH ×2 (09:09→17:18)
[2018-11-26] MEDS: MEROPENEM 1GM 100 ML IV SCH (09:09)
[2018-11-26] MEDS: AMLODIPINE BESYLATE 10 MG TAB PO SCH (09:09)
[2018-11-26] MEDS: PHENAZOPYRIDINE HCL 100 MG TAB PO SCH ×3 (09:09→17:18)
[2018-11-26] MEDS: ESCITALOPRAM OXALATE 10 MG TAB PO SCH (09:09)
[2018-11-26] MEDS: QUETIAPINE FUMARATE 100 MG TAB PO SCH ×3 (09:10→20:16)
[2018-11-26] MEDS: BUPROPION HCL SR 150 MG TAB PO SCH ×3 (09:10→20:17)
[2018-11-26] MEDS ORDERED: POTASSIUM CHLORIDE 20 MEQ TAB CR PO ONE (15:00)
--- NOTE | 2018-11-26 18:24 | Progress Note ---
DATE: SUBJECTIVE: Mr. Mendoza is doing good. There is no complaint. REVIEW OF SYSTEMS: HEENT: Negative. PULMONARY: Negative. CARDIAC: Negative. All negative, however, the nurse tells me that every time he takes the meropenem he sleeps for 2 hours after that. PHYSICAL EXAMINATION: GENERAL: He is currently alert, oriented, does not seem to be in acute distress. VITAL SIGNS: Stable, currently afebrile. HEENT: Not icteric. NECK: Supple. CHEST: Clear. HEART: S1 and S2. ABDOMEN: Soft and obese. IMPRESSION: Urinary tract infection with Enterobacter cloacae ESBL to finish 14 days of meropenem. We will decrease 500 q.8. We will ask the Case Management tomorrow to arrange two weeks of antibiotic, PICC line tomorrow morning. Weekly CBC, weekly Chem panel. MD JESSI Jaffe/MIGUEL /[id number]
--- NOTE | 2018-11-26 19:57 | NUR ---
Received change of shift report from AM nurse. Walking rounds completed.
[2018-11-26] MEDS: INSULIN GLARGINE 100 UNITS/ML VIAL SQ SCH (20:25)
[2018-11-26] MEDS: MEROPENEM 500MG/ NS 50ML 50 ML IV SCH (22:00)
[2018-11-27 04:35] VITALS: BP 152/77
[2018-11-27] MEDS: MEROPENEM 500MG/ NS 50ML 50 ML IV SCH ×3 (05:16→22:00)
--- NOTE | 2018-11-27 05:43 | NUR ---
Patient resting quitly at this time.
--- NOTE | 2018-11-27 05:44 | NUR ---
Patient resting quitly at this time. Addendum: 11/27/18 at 0545 by Mary Carmen Reynoso RN duplicate
--- NOTE | 2018-11-27 05:47 | NUR ---
Consent signed for PICC line. Patient verbalized understanding.
--- NOTE | 2018-11-27 06:15 | NUR ---
Order to remove galo. Patient states he wants to wait until after breakfast.
--- NOTE | 2018-11-27 07:00 | NUR ---
received am report from nurse and morning rounds done. pt is sleeping comfortably, no s/s of distress. call light is within reach and side rails are up.
[2018-11-27 07:28] VITALS: BP 146/74
[2018-11-27] MEDS: INSULIN LISPRO 100 UNIT/1 ML 3ML VIAL SQ SCH ×4 (07:30→20:00)
[2018-11-27 07:45] VITALS: BP 146/74
[2018-11-27] MEDS ORDERED: FUROSEMIDE INJ 10 MG/ML 4 ML VIAL ONE (08:11)
[2018-11-27] MEDS: AMLODIPINE BESYLATE 10 MG TAB PO SCH (08:28)
[2018-11-27] MEDS: ESCITALOPRAM OXALATE 10 MG TAB PO SCH (08:28)
[2018-11-27] MEDS: DOCUSATE SODIUM 100 MG CAP PO SCH ×2 (08:28→17:15)
[2018-11-27] MEDS: QUETIAPINE FUMARATE 100 MG TAB PO SCH ×3 (08:29→20:00)
[2018-11-27] MEDS: PHENAZOPYRIDINE HCL 100 MG TAB PO SCH ×3 (08:29→17:15)
[2018-11-27] MEDS: BUPROPION HCL SR 150 MG TAB PO SCH ×3 (08:29→20:03)
[2018-11-27 11:08] VITALS: BP 129/69
--- NOTE | 2018-11-27 13:11 | NUR ---
picc line was placed and chest xray ordered to verify placement
--- NOTE | 2018-11-27 13:49 | Diagnostic Imaging Report ---
EXAMINATION: CHEST XRAY LINE PLACEMENT, PICC INSERT W OR W/O PORT INDICATION: PICC placement COMPARISON: None FINDINGS: LINES/TUBES:Interval placement of left PICC line which terminates at the superior cavoatrial junction. LUNGS:The lungs are well-inflated. No focal consolidation or pulmonary edema. PLEURA:No pleural effusion or pneumothorax. MEDIASTINUM:The heart is mildly enlarged. BONES/SOFT TISSUES:No acute osseous injury. ABDOMEN:No free air under the diaphragm. IMPRESSION: Left PICC line terminates at the superior cavoatrial junction. No focal pneumonia or pulmonary edema. Mild cardiomegaly. Signed by: Mili Crawford MD on 11/27/2018 1:45 PM
--- NOTE | 2018-11-27 15:10 | NUR ---
Picc line tip is at cavoatrial junction per radiology report by Dr Mili Crawford. Picc is okay to use
[2018-11-27 15:16] VITALS: BP 144/75
[2018-11-27] MEDS ORDERED: SODIUM CHLORIDE 0.9% 250ML 250 ML ONE (15:28)
--- NOTE | 2018-11-27 15:37 | NUR ---
ORDER RECEIVED FOR HOME IV ABX. MET W THE PT AT THE BEDSIDE. STATES OK TO USE BI[employer] OR CORAM; AN IN NETWORK PROVIDER. REFERRAL WAS FAXED TO [facility] @ [phone]. NOTIFIED [employer].
--- NOTE | 2018-11-27 15:41 | NUR ---
HOME HEALTH DISCHARGE NOTE PATIENT ADDRESS WHERE SERVICE WILL BE RECEIVED: [address] [place] [address] PATIENT CONTACT NUMBER: [phone] NAME OF HOME HEALTH COMPANY: [facility] TELEPHONE/FAX NUMBER OF COMPANY: OFF: [phone] / FAX: [phone] ADDRESS OF COMPANY: [id number] [facility] [address] [place] [address] SERVICES TO RECEIVE: IV MERREM 1GRAM EVERY 12 HOURS FOR 10 DAYS ANTICIPATED DATE SERVICES WILL BEGIN: 11/27/2018 Please call the company above if you have not received a call to schedule a home visit within 24 hours of discharge.
--- NOTE | 2018-11-27 15:46 | NUR ---
IMM LETTER EXPLAINED TO PT. PT VERBALIZED UNDERSTANDING. IMM LETTER SIGNED. COPY TO PT AND COPY TO CHART.
--- NOTE | 2018-11-27 15:54 | NUR ---
Home health nurse is a the bedside teaching patient how to use PICC line. Requested that the nurse get an order from the physician to discontinue the PICC line once antibiotic therapy is complete. called Dr. Gannon and received order. Dr. Gannon also stated to "wait until tomorrow (11/28/18) in AM to d/c the patient home".
--- NOTE | 2018-11-27 19:21 | NUR ---
Received change of shift report from Am nurse. Patient up in chair. Denies pain at this time.
[2018-11-27 20:00] VITALS: BP 143/76
[2018-11-27] MEDS: INSULIN GLARGINE 100 UNITS/ML VIAL SQ SCH (20:02)
[2018-11-28] VITALS: BP 130/65
[2018-11-28 04:00] VITALS: BP 125/61
[2018-11-28] MEDS: MEROPENEM 500MG/ NS 50ML 50 ML IV SCH (05:29)
--- NOTE | 2018-11-28 07:00 | NUR ---
received am report from rn and morning rounds done. pt is alert, resting in bed, no s/s of distress. call light is within reach and instructed pt to call nurse for help.
[2018-11-28] MEDS: INSULIN LISPRO 100 UNIT/1 ML 3ML VIAL SQ SCH (07:30)
[2018-11-28 08:00] VITALS: BP 158/83
[2018-11-28] MEDS: BUPROPION HCL SR 150 MG TAB PO SCH (08:37)
[2018-11-28] MEDS: ESCITALOPRAM OXALATE 10 MG TAB PO SCH (08:37)
[2018-11-28] MEDS: QUETIAPINE FUMARATE 100 MG TAB PO SCH (08:37)
[2018-11-28] MEDS: DOCUSATE SODIUM 100 MG CAP PO SCH (08:37)
[2018-11-28] MEDS: AMLODIPINE BESYLATE 10 MG TAB PO SCH (08:37)
[2018-11-28] MEDS: PHENAZOPYRIDINE HCL 100 MG TAB PO SCH (08:37)
[2018-11-28 08:38] VITALS: BP 158/83
[2018-11-28 12:00] VITALS: BP 134/84
--- NOTE | 2018-11-29 02:33 | Discharge Summary ---
PRIMARY CARE PHYSICIAN: . CONSULTANTS: Dr. Berto Johnson and Dr. Anel Iglesias. FINAL DIAGNOSES: 1. Complicated urinary tract infection associated with multi-drug resistant bacteria. The patient will go home with IV antibiotics. A left PICC line was placed. The patient will continue with meropenem x14 days. 2. Status post bilateral ureteral stent placement secondary to bilateral stones. The patient has exchange of the right ureteral stent and then partial removal of the left ureteral stent that was placed many years ago. The left stent was friable and only partially removed because inside has been grown with stones. The patient has severe left hydronephrosis. The patient also had a renal scan that showed left kidney is nonfunctional. SUMMARY: The patient is a 53-year-old male with kidney stone with obstruction, bilateral hydronephrosis. The patient had a right ureteral stent that was subsequently removed and Dr. Berto Johnson attempted to remove the left long-time indwelling ureteral stent, but he only removed partially due to friable and it broke off. Renal scan showed that the left kidney is very nonfunctional. However, renal function is stable. BUN and creatinine are 18 and 1.4, potassium 3.4, sodium 142. The patient has multi-drug resistant bacteria, sensitivity to meropenem. The patient's IV antibiotic has been arranged for 14 days total. The patient will go home. Follow up with Dr. Berto Johnson for further management as an outpatient. He will also follow up with Dr. Iglesias for antibiotics. The patient is otherwise stable, discharged today. He will follow up with his family physician for medication reconciliation. MD WILL Burr/MIGUEL /[id number]
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
== END 2018-11-28 11:29 | disposition home or self-care (01) | DRG 660 ==
LOC: OR 09:31 → PACU V 14:36 → MED/SURG 15:24 → MED/SURG3 11-24 21:53
PROVIDERS: ADMIT Internal Medicine; ATTEND Internal Medicine
PROC: 0TCB8ZZ Extirpation of Matter from Bladder, Via Natural or Artificial Opening Endoscopic (ICD-10-PCS; 2018-11-22)
PROC: 0TJ58ZZ Inspection of Kidney, Via Natural or Artificial Opening Endoscopic (ICD-10-PCS; 2018-11-22)
PROC: 0T788DZ Dilation of Bilateral Ureters with Intraluminal Device, Via Natural or Artificial Opening Endoscopic (ICD-10-PCS; principal; 2018-11-22 11:30)
PROC: 0TP98DZ Removal of Intraluminal Device from Ureter, Via Natural or Artificial Opening Endoscopic (ICD-10-PCS; 2018-11-22 11:30)
PROC: 02HV33Z Insertion of Infusion Device into Superior Vena Cava, Percutaneous Approach (ICD-10-PCS; 2018-11-27)
PROC: B548ZZA Ultrasonography of Superior Vena Cava, Guidance (ICD-10-PCS; 2018-11-27)
DX: T83.592A Infection and inflammatory reaction due to indwelling ureteral stent, initial encounter (principal); N13.6 Pyonephrosis; Z68.43 Body mass index [BMI] 50.0-59.9, adult; Z94.0 Kidney transplant status; T83.192A Other mechanical complication of indwelling ureteral stent, initial encounter; E66.01 Morbid (severe) obesity due to excess calories; Z79.4 Long term (current) use of insulin; G47.33 Obstructive sleep apnea (adult) (pediatric); E11.22 Type 2 diabetes mellitus with diabetic chronic kidney disease; I12.9 Hypertensive chronic kidney disease with stage 1 through stage 4 chronic kidney disease, or unspecified chronic kidney disease; N18.1 Chronic kidney disease, stage 1; B96.89 Other specified bacterial agents as the cause of diseases classified elsewhere; Z16.12 Extended spectrum beta lactamase (ESBL) resistance; D64.9 Anemia, unspecified; N21.0 Calculus in bladder
CPT/HCPCS: 36415; 36569; 71045; 74018; 74420; 78707; 80048; 82948; 85025; 87086; 87186; 88300; 93005; A9562; C1758; C2617; J0696; J1100; J1580; J1815; J1940; J2001; J2250; J2405; J2543; J3010; J7030; J7050

== ENCOUNTER 2019-02-14 06:43 | Inpatient (IN) | payer MEDICARE ==
[2019-02-13 09:02] LABS: BASOPHILS # (AUTO) 0.1 (0.0-0.1); BASOPHILS % 1.3 % (0.0-1.0); EOSINOPHILS # (AUTO) 0.4 (0.0-0.4); EOSINOPHILS % 4.1 % (0.0-6.0); HEMATOCRIT 40.4 % (38.2-49.6); HEMOGLOBIN 12.7 g/dL (14.0-18.0); LYMPHOCYTES # (AUTO) 1.7 (1.0-3.2); LYMPHOCYTES % 18.5 % (18.0-39.1); MEAN CORPUSCULAR HEMOGLOBIN 26.6 pg (28-32); MEAN CORPUSCULAR HGB CONC 31.4 g/dL (31-35); MEAN CORPUSCULAR VOLUME 84.5 fL (81-99); MONOCYTES # (AUTO) 0.6 (0.2-0.8); NEUTROPHILS # (AUTO) 6.3 (2.1-6.9); NEUTROPHILS % 68.9 % (38.7-80.0); PLATELET COUNT 252 x10e3/uL (140-360); RED BLOOD COUNT 4.78 x10e6/uL (4.3-5.7)
[2019-02-13 09:17] LABS: ANION GAP 13.7 mmol/L (8-16); CALCIUM 9.3 mg/dL (8.4-10.2); CREATININE, SERUM 1.46 mg/dL (0.72-1.25); POTASSIUM 3.7 mmol/L (3.5-5.1)
--- NOTE | 2019-02-13 09:23 | Diagnostic Imaging Report ---
EXAM: ABDOMEN-1VIEW (KUB) DATE: 02/13/2019 8:34 AM INDICATION: Preoperative evaluation, stent removal COMPARISON: 11/22/2018 FINDINGS: Bowel gas pattern is nonobstructive. Bilateral double-J ureteral stents identified in place. Again identified are left renal calculi measuring up to 2.1 cm, similar to the prior examination. Multiple surgical clips noted projecting over the pelvis. The osseous structures history degenerative changes. Partially visualized known pubic diastasis noted. No acute osseous abnormality identified. IMPRESSION: Left-sided nephrolithiasis. Bilateral ureteral stents noted in place. Signed by: Dr. Ashwin Mario MD on 02/13/2019 9:20 AM
[2019-02-14] VITALS (7 sets, daily range): BP systolic 137–174; BP diastolic 65–77
[~2019-02-14] VITALS: Ht 182.9 cm; Wt 195.0 kg
[~2019-02-14 06:43] MED LIST: AMLODIPINE BESY10 MG PO; BENADRYL25 M1 PO; BUPROPION HCL75 MG PO; GLIMEPIRIDE2 MG PO; HYDROXYZINE HCL25 MG PO; LEVEMIR100 UNIT/1 SC; LEXAPRO10 MG PO; QUETIAPINE FUM100 MG PO; SEROQUEL25 MG PO
--- OUTSIDE RECORDS SUMMARY | 2019-02-14 06:45 | XMS REPORT ---
Author Author [facility] Address Unknown Phone Unavailable Care Team Providers Care Race Starter Name Role Phone CAN FIERRO Unavailable Unavailable MIRANDA BRAVO Unavailable Unavailable Problems This patient has no known problems. Allergies, Adverse Reactions, Alerts This patient has no known allergies or adverse reactions. Medications This patient has no known medications. Results Test Description Test Time Test Comments Text Results Atomic Results Result Comments ABDOMEN-1VIEW (KU) 2019-02-13 09:16:00 [place] [address] Patient Name: ANDERSON GAN MR #: [id number] : 1965 Age/Sex: 53/M Req #: [id number] Adm Physician: Ordered by: CAN FIERRO MD Report #: [id number] Location: OR Room/Bed: Procedure: [id number] DX/ABDOMEN-1VIEW ([facility]) Exam Date: 02/13/19 Exam Time: 0856 REPORT STATUS: Signed EXAM: ABDOMEN-1VIEW ([facility]) DATE: 02/13/2019 8:34 AM INDICATION: Preoperative evaluation, stent removal COMPARISON: 11/22/2018 FINDINGS: Bowel gas pattern is nonobstructive. Bilateral double-J ureteral stents identified in place. Again identified are left renal calculi measuring up to 2.1 cm, similar to the prior examination. Multiple surgical clips noted projecting over the pelvis. The osseous structures history degenerative changes. Partially visualized known pubic diastasis noted. No acute osseous abnormality identified. IMPRESSION: Left- sided nephrolithiasis. Bilateral ureteral stents noted in place. Signed by: Dr. Ashwin Mario MD on 02/13/2019 9:20 AM Dictated By: ASHWIN MARIO MD 9 Transcribed By: CHANELLE on 02/13/19919 COPY TO: CAN FIERRO MD CHEST XRAY LINE PLACEMENT 2018-11-27 13:43:00 [place] [id number] [place] [address] Patient Name: ANDERSON GAN MR #: [id number] : 1965 Age/Sex: 53/M Req #: [id number] [facility] Physician: MIRANDA BRAVO MD Ordered by: MIRANDA BRAVO MD Report #: [id number] Location: [facility] Room/Bed: [facility] Procedure: [id number] DX/CHEST XRAY LINE PLACEMENT Exam Date: 11/27/18 Exam Time: 1325 REPORT STATUS: Signed EXAMINATION: CHEST XRAY LINE PLACEMENT, PICC INSERT W OR W/O PORT INDICATION: PICC placement COMPARISON: None FINDINGS: LINES/TUBES:Interval placement of left PICC line which terminates at the superior cavoatrial junction. LUNGS:The lungs are well-inflated. No focal consolidation or pulmonary edema. PLEURA:No pleural effusion or pneumothorax. MEDIASTINUM:The heart is mildly enlarged. BONES/SOFT TISSUES:No acute osseous injury. ABDOMEN:No free air under the diaphragm. IMPRESSION: Left PICC line terminates at the superior cavoatrial junction. No focal pneumonia or pulmonary edema. Mild cardiomegaly. Signed by: Bernice Narayanan MD on 11/27/2018 1:45 PM Dictated By: BERNICE NARAYANAN MD 134 Transcribed By: CHANELLE on 11/27/181344 COPY TO: MIRANDA BRAVO MD PICC INSERT W OR W/O PORT 2018-11-27 13:43:00 [place] [address] Patient Name: ANDERSON GAN MR #: [id number] : 1965 Age/Sex: 53/M Req #: [id number] Adm Physician: MIRANDA BRAVO MD Ordered by: CAN FIERRO MD Report #: [id number] Location: [facility] Room/Bed: [facility] Procedure: [id number] IR/PICC INSERT W OR W/O PORT Exam Date: 11/27/18 Exam Time: 1325 REPORT STATUS: Signed EXAMINATION: CHEST XRAY LINE PLACEMENT, PICC INSERT W OR W/O PORT INDICATION: PICC placement COMPARISON: None FINDINGS: LINES/TUBES:Interval placement of left PICC line which terminates at the superior cavoatrial junction. LUNGS:The lungs are well-inflated. No focal consolidation or pulmonary edema. PLEURA:No pleural effusion or pneumothorax. MEDIASTINUM:The heart is mildly enlarged. BONES/SOFT TISSUES:No acute osseous injury. ABDOMEN:No free air under the diaphragm. IMPRESSION: Left PICC line terminates at the superior cavoatrial junction. No focal pneumonia or pulmonary edema. Mild cardiomegaly. Signed by: Bernice Narayanan MD on 11/27/2018 1:45 PM Dictated By: BERNICE NARAYANAN MD 134 Transcribed By: CHANELLE on 11/27/18 1344 COPY TO: CAN FIERRO MD RENAL SCAN W/FLOW FUNCTION 2018-11-23 20:25:00 [place] [address] Patient Name: ANDERSON GAN MR #: [id number] : 1965 Age/Sex: 53/M Req #: [id number] Adm Physician: MIRANDA BRAVO MD Ordered by: CAN FIERRO MD Report #: [id number] Location: MED/SURG Room/Bed: [facility] Procedure: NM/RENAL SCAN W/FLOW FUNCTION Exam Date: 11/23/18 Exam Time: 1425 REPORT STATUS: Signed Renal Scan with Lasix Washout Clinical infor mation: Bilateral renal calculi; bilateral ureteral stents recently placed. Technique: Following intravenous administration of 10 mCi of Tc-99m MAG3, dynamic images of the kidneys in the posterior projection were obtained through 40 minutes. Lasix 40 mg was administered intravenously at 10 minutes post injection of the tracer. Report: Left kidney: Perfusion of the left kidney is prompt. The kidney has a distorted reniform shape with thinning of the renal cortex. The kidney is overall reduced in size. Extraction of tracer from the blood pool is decreased. Clearance of tracer from the renal parenchyma is prolonged and is not complete by the end of the study. The pelvicalyceal system does not appear dilated. Increased pooling of tracer is seen within a dilated calyx in the upper pole. No net drainage of tracer from the pelvicalyceal system is seen prior to administration of Lasix. No washout of tracer from the dilated upper pole iain is seen prior to administration of Lasix. Washout of tracer from the pelvicalyceal system following administration of Lasix is rapid with a T-1/2 of 10 minutes (normal less than 15 minutes). No significant stasis of tracer is seen within the left ureter. Right kidney: Perfusion to the right kidney is prompt. The right kidney has distorted reniform shape with thinning of the renal. Extraction of tracer by the renal parenchyma is decreased. The kidney is overall reduced in size and is slightly smaller than the left kidney. Clearance of tracer from the renal parenchyma is prolonged but is complete by the end of the study. The pelvicalyceal system does not appear dilated. Some pooling of tracer is present in a mildly dilated upper pole iain. No net drainage of tracer from the pelvicalyceal system is seen prior to administration of Lasix. Washout of tracer from the pelvicalyceal system following administration of Lasix is adequate with a T-1/2 of 12 minutes (normal less than 15 minutes). No significant stasis of tracer is seen within the right ureter. Differential renal function: The left kidney contributes 56% of total renal function and the right kidney contributes 44% (normal 43-57%). Impression: 1. Medical renal disease is present in the left kidney evidenced by reduced size of the kidney and decreased clearance of tracer from the renal parenchyma. No hydronephrosis is present although there is a dilated iain in the upper pole. Physiologically significant obstruction of the pelvicalyceal system cannot be adequately evaluated by the Lasix washout method as the pelvicalyceal system does not appear to fill to near capacity, however, obstruction is suspected given that tracer in the dilated upper pole iain does not washout. The overall function of the kidney is worse than the right kidney evidenced by the poor clearance of tracer from the renal parenchyma. Chronic obstructive uropathy appears to be present. 2. Medical renal disease is present in the right kidney. The differential function of 44% is due to the smaller size of the right kidney compared to the left. The tubular function of the right kidney is better than that in the left kidney evidenced by the better clearance of tracer form the renal parenchyma. No hydronephrosis is present. A dilated iain in the upper pole drains adequately. No physiologically significant obstruction of the renal collecting system is present. Signed by: Dr. Eduardo Knox M.D. on 11/23/2018 8:43 PM Dictated By: EDUARDO KNOX MD 42 Transcribed By: CHANELLE on 11/23/182042 COPY TO: CAN FIERRO MD ABDOMEN-1VIEW ([facility]UB) 2018-11-22 11:50:00 [place] [address] Patient Name: ANDERSON GAN MR #: [id number] : 1965 Age/Sex: 53/M Req #: [id number] Adm Physician: Ordered by: CAN FIERRO MD Report #: [id number] Location: OR Room/Bed: Procedure: [id number] DX/ABDOMEN-1VIEW (KUB) Exam Date: 11/22/18 Exam Time: 1115 REPORT STATUS: Signed Exam: KUB - 2 views Indication: Preoperative Comparison: None Findings: Bilateral internal nephroureteral stents in place. Left renal calculi measure up to 21 mm. Area of increased density overlying the lower pole of the right renal silhouette measuring up to 17 mm but is severely obscured by patient motion artifact. This may represent a calculus versus intraluminal bowel contents. Nonobstructive bowel gas pattern. Degenerative changes of the lower lumbar spine. Severe pubic diastasis which may be postoperative, posttraumatic, or congenital. Impression: Bilateral internal nephroureteral stents in place. Left renal calculi up to 21 mm. Increased density overlying lower pole of right kidney measures up to 17 mm but is severely limited by patient motion artifact and may represent calculus versus intraluminal bowel content. Signed by: Bernice Narayanan MD on 11/22/2018 11:55 AM Dictated By: BERNICE NARAYANAN MD 1156 Transcribed By: CHANELLE on 11/22/18 115 COPY TO: CAN FIERRO MD
[2019-02-14] MEDS ORDERED: GENTAMICIN 80MG/NS 100 ML 200 ML IV ONE (07:02)
--- NOTE | 2019-02-14 07:10 | NUR ---
SPIRITUAL CARE - Pre-Surgery Assessment: Pt in bed. Pt reported supportive attention from family and friends. Intervention: I provided pastoral presence, hospitality, and sympathetic listening. I acquainted pt with availability of carton lettering machine operator while hospitalized. Outcome: Pt expressed appreciation for visit. No need for follow up indicated at this time. LIANA Arriolalain Spiritual Care Department O: [phone] Pager: [phone] ([phone] number calling from)
[2019-02-14] MEDS ORDERED: MEROPENEM 1GM 100 ML IV ONE (08:00)
[2019-02-14] MEDS ORDERED: IOPAMIDOL 300MG/ML 50ML INFUS..BTL IV ONE (09:15)
[2019-02-14] MEDS ORDERED: B&O 60MG R/S 60 MG SUPP PR ONE (09:15)
[2019-02-14] MEDS ORDERED: FLUCONAZOLE 200 MG/100 ML 100 ML IV ONE (11:08)
[2019-02-14] MEDS ORDERED: D5.45%NS/KCL 20MEQ 1,000 ML IV SCH (12:43)
[2019-02-14] MEDS ORDERED: B&O 60MG R/S 60 MG SUPP PR PRN (12:45)
[2019-02-14] MEDS ORDERED: ACETAMINOPHEN/CODEINE 300MG - 30MG TAB PO PRN (12:45)
[2019-02-14] MEDS ORDERED: DIPHENHYDRAMINE HCL 25 MG CAP PO PRN ×2 (12:45→16:00)
[2019-02-14] MEDS ORDERED: ONDANSETRON HCL INJ 2MG/ML 2ML 2 MG/ML VIAL IV PRN (12:45)
--- NOTE | 2019-02-14 14:10 | NUR ---
received pt to floor aa0x3 pt reports pain of 6.10 described as spams . received b&o in pacu galo cath in place draining pink tinged urine iv to the right ac 20 g patent and intact v.s taken , bs in 70 given pt sandwish and juice for tx will continue to monitor pt closely side railsx2, bed wheels locked call light is within easy reach, instructed to call for assistance if needed
[2019-02-14] MEDS ORDERED: FENTANYL CITRATE/PF 100MCG/2 ML INJ ONE (14:34)
[2019-02-14] MEDS ORDERED: MIDAZOLAM HCL 2 MG/2 ML VIAL ONE (14:34)
[2019-02-14] MEDS: KCL 20MEQ/.9 SOD CHL 1,000 ML IV SCH (14:51)
[2019-02-14] MEDS: CEFEPIME 1GM/NS 0.9% 50 ML 50 ML IV SCH (14:51)
[2019-02-14] MEDS ORDERED: DEXTROSE 50% SYRINGE 50 ML IV PRN (16:00)
[2019-02-14] MEDS ORDERED: HYDROXYZINE HCL 25 MG TAB PO PRN (16:00)
[2019-02-14] MEDS: INSULIN LISPRO 100 UNIT/1 ML 3ML VIAL SQ SCH ×2 (16:12→20:52)
[2019-02-14] MEDS: INSULIN GLARGINE 100 UNITS/ML VIAL SQ SCH (16:30)
[2019-02-14] MEDS ORDERED: NON-FORMULARY MEDICATION (Insulin Detemir (Levemir) 40 UNITS) SC SCH (16:30)
[2019-02-14] MEDS: DOCUSATE SODIUM 100 MG CAP PO SCH (16:56)
[2019-02-14] MEDS: AMLODIPINE BESYLATE 10 MG TAB PO SCH (16:56)
[2019-02-14] MEDS: QUETIAPINE FUMARATE 100 MG TAB PO SCH (16:57)
[2019-02-14] MEDS ORDERED: ROCURONIUM BROMIDE 10 MG/ML 5ML VIAL ONE (18:51)
[2019-02-14] MEDS ORDERED: SEVOFLURANE INHAL SOLN 250 ML PEN BTL ONE (18:51)
[2019-02-14] MEDS ORDERED: SUCCINYLCHOLINE 200 MG/10 ML SYR ONE (18:51)
[2019-02-14] MEDS ORDERED: PROPOFOL IV EMULSION 10 MG/ML 20 ML VIAL ONE (18:51)
[2019-02-14] MEDS ORDERED: ACETAMINOPHEN 1000 MG/100 ML IV ONE (18:51)
[2019-02-14] MEDS ORDERED: ONDANSETRON HCL INJ 2MG/ML 2ML 2 MG/ML VIAL ONE (18:51)
[2019-02-14] MEDS ORDERED: LIDOCAINE HCL 2% LOCAL INJ 5 ML SDV VIAL INJ ONE (18:51)
--- NOTE | 2019-02-14 18:55 | NUR ---
RECEIVED REPORT FROM PREVIOUS NURSE. CALL LIGHT WITHIN REACH. PATIENT IN BED. PATIENT IN NO DISTRESS
[2019-02-14] MEDS: BUPROPION HCL 75 MG TAB PO SCH (20:49)
[2019-02-14] MEDS ORDERED: NON-FORMULARY MEDICATION (Bupropion Hcl 150 MG) PO SCH (21:00)
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
[2019-02-15] VITALS (8 sets, daily range): BP systolic 119–150; BP diastolic 53–94
[2019-02-15] MEDS: KCL 20MEQ/.9 SOD CHL 1,000 ML IV SCH (01:22)
[2019-02-15] MEDS: CEFEPIME 1GM/NS 0.9% 50 ML 50 ML IV SCH ×2 (03:03→15:04)
[2019-02-15 06:17] LABS: BASOPHILS # (AUTO) 0.1 (0.0-0.1); BASOPHILS % 0.5 % (0.0-1.0); EOSINOPHILS # (AUTO) 0.3 (0.0-0.4); EOSINOPHILS % 1.8 % (0.0-6.0); HEMATOCRIT 38.1 % (38.2-49.6); HEMOGLOBIN 11.7 g/dL (14.0-18.0); LYMPHOCYTES # (AUTO) 1.3 (1.0-3.2); MEAN CORPUSCULAR HEMOGLOBIN 26.2 pg (28-32); MEAN CORPUSCULAR HGB CONC 30.7 g/dL (31-35); MEAN CORPUSCULAR VOLUME 85.2 fL (81-99); MONOCYTES # (AUTO) 1.5 (0.2-0.8); NEUTROPHILS # (AUTO) 11.6 (2.1-6.9); NEUTROPHILS % 78.3 % (38.7-80.0); PLATELET COUNT 212 x10e3/uL (140-360); RED BLOOD COUNT 4.47 x10e6/uL (4.3-5.7); RED CELL DISTRIBUTION WIDTH 14.3 % (11.7-14.4)
[2019-02-15 06:39] LABS: ANION GAP 13.2 mmol/L (8-16); CALCIUM 8.9 mg/dL (8.4-10.2); CREATININE, SERUM 1.35 mg/dL (0.72-1.25); POTASSIUM 4.2 mmol/L (3.5-5.1)
--- NOTE | 2019-02-15 06:59 | NUR ---
Gave report to oncoming nurse. Call light within reach. Patient in bed.
[2019-02-15] MEDS: INSULIN LISPRO 100 UNIT/1 ML 3ML VIAL SQ SCH ×4 (07:30→21:00)
[2019-02-15] MEDS: DOCUSATE SODIUM 100 MG CAP PO SCH ×2 (08:27→17:00)
[2019-02-15] MEDS: BUPROPION HCL 75 MG TAB PO SCH ×3 (08:28→21:29)
[2019-02-15] MEDS: INSULIN GLARGINE 100 UNITS/ML VIAL SQ SCH ×2 (08:28→17:00)
[2019-02-15] MEDS: AMLODIPINE BESYLATE 10 MG TAB PO SCH (08:28)
[2019-02-15] MEDS: ESCITALOPRAM OXALATE 10 MG TAB PO SCH (08:28)
[2019-02-15] MEDS: QUETIAPINE FUMARATE 100 MG TAB PO SCH ×2 (08:29→17:00)
--- NOTE | 2019-02-15 15:54 | History and Physical ---
The patient is admitted after urological procedures. HISTORY OF PRESENT ILLNESS: A 53 years old male, status post bilateral stent removal and then lithotripsy with laser lithotripsy, treatment of the stone and then subsequently replaced the stent. The patient is stable. He had retained stent calcified in the kidney for years. There was a large right kidney stone, unable to remove due to retained stone. The stent was placed at that time of 2000. The patient per note will need a percutaneous nephrostomy later on the left side. The patient is otherwise stable at this time. PAST MEDICAL HISTORY: Hydronephrosis with bilateral ureteral stent and stones, morbid obesity, depression and anxiety disorder, obstructive sleep apnea, diabetes type 2, on insulin therapy, and hypertension. PAST SURGICAL HISTORY: History of colostomy with colostomy reversal. He has previous bowel obstruction with partial colon resection. Umbilical hernia with mesh repair, hiatal hernia repair, and appendectomy. SOCIAL HISTORY: The patient does not smoke or use alcohol. No regular drug. ALLERGIES: NO KNOWN ALLERGIES. HOME MEDICATIONS: List reviewed. REVIEW OF SYSTEMS: As mentioned above. PHYSICAL EXAMINATION: VITAL SIGNS: Temperature is 98, blood pressure 119/53, pulse rate 83, and respirations 18. GENERAL: The patient is not in acute distress. He is awake. HEENT: Normocephalic and atraumatic. Anicteric. NECK: Supple grossly. PULMONARY: Diminished breath sounds. CARDIOVASCULAR: Regular rate and rhythm. ABDOMEN: Morbidly obese. Grady catheter in place. EXTREMITIES: No cyanosis or edema. NEUROLOGIC: No gross focal deficit. LABORATORY DATA: Sodium 140, potassium 4.2, chloride 104, bicarb 27, BUN 20, creatinine 1.3, and glucose 101. WBC 15, hemoglobin 11.7, hematocrit 38.1, and platelets is 212. IMPRESSION: 1. Status post cystoscopy associated with bilateral stent removal and replacement with stone management. 2. Left hydronephrosis with large stone remain possible future percutaneous nephrostomy tube. 3. Multiple baseline problems. PLAN: Continue antibiotics per Dr. Iglesias. Continue with home medication with some adjustment. Insulin sliding scale coverage. We will monitor the patient closely. Increase in activity. SCD. We will repeat lab work. MD WILL Burr/MODL /[id number]
--- NOTE | 2019-02-15 18:43 | NUR ---
RECEIVED REPORT FROM PREVIOUS NURSE. CALL LIGHT WITHIN REACH. PATIENT IN BED
[2019-02-16] VITALS: BP 133/60
[2019-02-16] MEDS: CEFEPIME 1GM/NS 0.9% 50 ML 50 ML IV SCH (03:19)
[2019-02-16 04:00] VITALS: BP 139/66
[2019-02-16 06:10] LABS: BASOPHILS # (AUTO) 0.1 (0.0-0.1); BASOPHILS % 0.6 % (0.0-1.0); EOSINOPHILS # (AUTO) 0.3 (0.0-0.4); EOSINOPHILS % 2.8 % (0.0-6.0); HEMATOCRIT 38.6 % (38.2-49.6); HEMOGLOBIN 12.1 g/dL (14.0-18.0); LYMPHOCYTES # (AUTO) 1.6 (1.0-3.2); LYMPHOCYTES % 14.8 % (18.0-39.1); MEAN CORPUSCULAR HEMOGLOBIN 26.4 pg (28-32); MEAN CORPUSCULAR HGB CONC 31.3 g/dL (31-35); MEAN CORPUSCULAR VOLUME 84.1 fL (81-99); MONOCYTES # (AUTO) 0.8 (0.2-0.8); MONOCYTES % 7.8 % (4.4-11.3); NEUTROPHILS # (AUTO) 7.8 (2.1-6.9); NEUTROPHILS % 73.7 % (38.7-80.0); PLATELET COUNT 217 x10e3/uL (140-360); RED BLOOD COUNT 4.59 x10e6/uL (4.3-5.7); RED CELL DISTRIBUTION WIDTH 13.8 % (11.7-14.4)
[2019-02-16 06:34] LABS: ANION GAP 13.9 mmol/L (8-16); CALCIUM 9.2 mg/dL (8.4-10.2); CREATININE, SERUM 1.28 mg/dL (0.72-1.25); POTASSIUM 3.9 mmol/L (3.5-5.1)
--- NOTE | 2019-02-16 07:15 | NUR ---
Gave report to oncoming nurse. Call light within reach. Patient sitting in reclining chair. Patient is A&Ox3.
[2019-02-16] MEDS: INSULIN LISPRO 100 UNIT/1 ML 3ML VIAL SQ SCH ×2 (07:30→11:30)
[2019-02-16] MEDS: INSULIN GLARGINE 100 UNITS/ML VIAL SQ SCH (07:30)
[2019-02-16 08:00] VITALS: BP 174/93
[2019-02-16] MEDS: ESCITALOPRAM OXALATE 10 MG TAB PO SCH (08:28)
[2019-02-16] MEDS: DOCUSATE SODIUM 100 MG CAP PO SCH (08:28)
[2019-02-16] MEDS: AMLODIPINE BESYLATE 10 MG TAB PO SCH (08:29)
[2019-02-16] MEDS: BUPROPION HCL 75 MG TAB PO SCH (08:29)
[2019-02-16] MEDS: QUETIAPINE FUMARATE 100 MG TAB PO SCH (08:29)
--- NOTE | 2019-02-16 11:39 | NUR ---
Grady catheter dc'd at this time. Pt tolerated well.
[2019-02-16 12:00] VITALS: BP 142/81
[2019-02-16] MEDS ORDERED: TYLENOL WITH C1 EACH PO (15:53)
[2019-02-16 16:00] VITALS: BP 171/114
--- NOTE | 2019-05-15 23:14 | Operative Report ---
DATE OF PROCEDURE: 02/14/2019 SURGEON: Berto Johnson MD PREOPERATIVE DIAGNOSES: 1. Bilateral nephrolithiasis. 2. Bilateral indwelling ureteral stents. POSTOPERATIVE DIAGNOSES: 1. Bilateral nephrolithiasis. 2. Bilateral indwelling ureteral stents. OPERATIONS PERFORMED: 1. Cystourethroscopy with complicated removal of bilateral indwelling ureteral stents (separate procedure performed for diagnosis of the stent done with separate scope). 2. Right ureteral pyeloscopy with holmium laser lithotripsy and insertion of stent (separate procedure performed for the right nephrolithiasis). 3. Left ureteroscopy with holmium laser lithotripsy and insertion of stents (separate procedure performed for the left nephrolithiasis). 4. Radiological services with supervision and interpretation of ureteroscopy. 5. Interpretation of retrograde ureteropyelography. 6. Supervision of fluoroscopy, no radiologist present greater than 1 hour. ANESTHESIA: General. COMPLICATIONS: None. CLINICAL SUMMARY: Remy Mendoza is a very complicated 53-year-old man with a retained left-sided stent and bilateral nephrolithiasis. The patient's stent is almost two decades old. The patient's stent was previously managed with removal of the distal 3rd of it including large bladder stone. The stent is friable and broke off at multiple attempts at grabbing it. The patient is brought for stone management and hopeful progression to removing of his left stent. He is aware of the risks of bleeding, infection, injury to adjacent structures, need for additional procedures and elected to proceed. OPERATIVE PROCEDURE IN DETAIL: Informed consent was verified. Remy Mendoza was properly identified taken to the operating room, placed on the cystoscopy table in supine position. Anesthesia was uneventfully begun. The patient was then carefully gently repositioned in the dorsal lithotomy position with all pressure points well padded. His genitalia were prepared and draped in usual sterile fashion. A 22.5-Thai cystoscope sheath with the visual obturator placed was atraumatically inserted patient's urethra was guided down the unremarkable distal urethra to the bulbar region where there was a stricture. We negotiated through the stricture and through the patient's distorted urethra status post open-book pelvic fracture and entered the patient's bladder we identified both indwelling ureteral stent. A guidewire was then placed into the left ureter and guided to the level of the patient's kidney. The stent was then grasped, completely removed and discarded. Utilizing secondary guidewire, ureteroscopy was performed. A flexible ureteroscope was brought up into left kidney. Panendoscopy of the kidney was performed. We identified stone material. Holmium laser lithotripsy was carried out until all stone material that was visible within the kidney was fragmented into small fragments that should be passable. The ureter was unremarkable, did not contain any residual stones. With cystoscopic fluoroscopic guidance a left-sided indwelling ureteral stent was then placed it was coiled in the patient's kidneys as well as the patient's bladder. The retaining suture was cut short. We reintroduced the cystoscope into the bladder and a guidewire was placed in the left ureter and guided to the level of the patient's kidney. Following this, the new stent that I placed the prior procedure was removed. We then performed ureteroscopy over the secondary guidewire brought it to the level of the patient's kidney. All stone material was visible within the kidney was pulverized into smaller fragments. Multiple passes were made at removing the stent. Multiple attempts were made to grasp the stent with a basket as well as the graspers and this was unsuccessful. The stent is encrusted within the patient's kidney internally and despite lasering stone material off the stent within the kidney the stent would not uncoil and would not move. Percutaneous access is the only way to achieve any hopes of stent clearance of this ancient and retained stent. With cystoscopic fluoroscopic guidance, a new left-sided indwelling ureteral stent was then placed it was coiled in patient's kidneys as well as the patient's bladder. The retaining suture was cut short. Interpretation of retrograde ureteropyelography contrast was instilled in retrograde fashion bilaterally. There was bilateral chronic hydronephrosis. There was an obvious open book pelvic fracture. The new stents were coiled in the patient's kidneys as well as the patient's bladder. There was tortuosity and distortion of the patient's right more than the left ureter. Belladonna and opium suppository were placed revealing BPH, but no suspicious lesions. The patient was uneventfully reversed from anesthesia and taken to recovery in stable condition. There were no complications to the procedure. The patient tolerated the procedure well. Cultures were obtained. We will admit the patient for postoperative intravenous antibiotics and management plans will be to return the patient to the operating room for percutaneous nephrostolithotomy on the left hand side in hopes of achieving stent and stone clearance via that method. MD ENMANUEL Mims/MIGUEL /[id number] cc: Berto Johnson MD
== END 2019-02-16 17:00 | disposition home or self-care (01) | DRG 660 ==
LOC: OR 06:43 → PACU V 12:46 → MED/SURG 14:17
PROVIDERS: ADMIT Internal Medicine; ATTEND Internal Medicine
PROC: BT141ZZ Fluoroscopy of Kidneys, Ureters and Bladder using Low Osmolar Contrast (ICD-10-PCS; 2019-02-14)
PROC: 0TP98DZ Removal of Intraluminal Device from Ureter, Via Natural or Artificial Opening Endoscopic (ICD-10-PCS; 2019-02-14)
PROC: 0TC18ZZ Extirpation of Matter from Left Kidney, Via Natural or Artificial Opening Endoscopic (ICD-10-PCS; principal; 2019-02-14 10:38)
PROC: 0TC08ZZ Extirpation of Matter from Right Kidney, Via Natural or Artificial Opening Endoscopic (ICD-10-PCS; 2019-02-14 10:38)
PROC: 0T788DZ Dilation of Bilateral Ureters with Intraluminal Device, Via Natural or Artificial Opening Endoscopic (ICD-10-PCS; 2019-02-14 10:38)
DX: T83.592A Infection and inflammatory reaction due to indwelling ureteral stent, initial encounter (principal); N13.6 Pyonephrosis; Z68.43 Body mass index [BMI] 50.0-59.9, adult; E66.01 Morbid (severe) obesity due to excess calories; E11.42 Type 2 diabetes mellitus with diabetic polyneuropathy; E78.5 Hyperlipidemia, unspecified; E11.22 Type 2 diabetes mellitus with diabetic chronic kidney disease; N18.9 Chronic kidney disease, unspecified; N41.9 Inflammatory disease of prostate, unspecified; D64.9 Anemia, unspecified; R53.81 Other malaise; B96.89 Other specified bacterial agents as the cause of diseases classified elsewhere; B95.4 Other streptococcus as the cause of diseases classified elsewhere; I12.9 Hypertensive chronic kidney disease with stage 1 through stage 4 chronic kidney disease, or unspecified chronic kidney disease; Z79.84 Long term (current) use of oral hypoglycemic drugs
CPT/HCPCS: 36415; 74018; 74420; 80048; 82948; 85025; 87086; 87186; C1766; C1769; C2617; J0692; J1450; J1580; J1815; J2001; J2250; J2405; J3010

== ENCOUNTER 2019-09-07 09:40 | Inpatient (IN) | payer MEDICARE, OTHER ==
[2019-09-04 12:18] LABS: BASOPHILS # (AUTO) 0.1 (0.0-0.1); BASOPHILS % 1.2 % (0.0-1.0); EOSINOPHILS # (AUTO) 0.4 (0.0-0.4); EOSINOPHILS % 3.9 % (0.0-6.0); HEMATOCRIT 41.7 % (38.2-49.6); HEMOGLOBIN 12.9 g/dL (14.0-18.0); LYMPHOCYTES # (AUTO) 1.7 (1.0-3.2); MEAN CORPUSCULAR HEMOGLOBIN 25.3 pg (28-32); MEAN CORPUSCULAR HGB CONC 30.9 g/dL (31-35); MEAN CORPUSCULAR VOLUME 81.8 fL (81-99); MONOCYTES # (AUTO) 0.6 (0.2-0.8); MONOCYTES % 6.3 % (4.4-11.3); NEUTROPHILS # (AUTO) 6.8 (2.1-6.9); NEUTROPHILS % 70.2 % (38.7-80.0); PLATELET COUNT 285 x10e3/uL (140-360); RED CELL DISTRIBUTION WIDTH 14.1 % (11.7-14.4)
[2019-09-04 12:48] LABS: CALCIUM 9.3 mg/dL (8.4-10.2); POTASSIUM 4.2 mmol/L (3.5-5.1)
[2019-09-04 13:10] LABS: ALBUMIN 3.7 g/dL (3.5-5.0); ALBUMIN/GLOBULIN RATIO 0.9 (0.8-2.0); ANION GAP 15.2 mmol/L (8-16); CREATININE, SERUM 1.34 mg/dL (0.72-1.25)
[~2019-09-07] VITALS: Ht 182.9 cm; Wt 194.2 kg
[~2019-09-07 09:40] MED LIST changes: +ASPIR 8181 MG PO; +BANOPHEN50 MG PO; +TYLENOL WITH C1 EACH PO
[2019-09-07] MEDS ORDERED: MEROPENEM 1GM 100 ML IV ONE (10:08)
[2019-09-07] MEDS ORDERED: B&O 60MG R/S 60 MG SUPP PR ONE (11:19)
[2019-09-07] MEDS ORDERED: IOPAMIDOL 300MG/ML 50ML INFUS..BTL IV ONE (11:19)
[2019-09-07] MEDS ORDERED: SEVOFLURANE INHAL SOLN 250 ML PEN BTL ONE (11:25)
[2019-09-07] MEDS ORDERED: LIDOCAINE HCL 2% JELLY 5 ML TUBE ONE (11:25)
[2019-09-07] MEDS ORDERED: PROPOFOL IV EMULSION 10 MG/ML 20 ML VIAL ONE (11:25)
[2019-09-07] MEDS ORDERED: ROCURONIUM BROMIDE 10 MG/ML 5ML VIAL IV ONE (11:25)
[2019-09-07] MEDS ORDERED: LIDOCAINE HCL 2% LOCAL INJ 5 ML SDV VIAL INJ ONE (11:25)
[2019-09-07] MEDS ORDERED: SUCCINYLCHOLINE CHLORIDE 20 MG/ML 10ML VIAL ONE (11:25)
[2019-09-07] MEDS ORDERED: ONDANSETRON HCL INJ 2MG/ML 2ML 2 MG/ML VIAL ONE (11:25)
--- NOTE | 2019-09-07 11:31 | Diagnostic Imaging Report ---
Exam: KUB - 2 views Indication: Preoperative Comparison: KUB 02/13/2019 Findings: Single right internal nephroureteral stent and 2 left internal nephroureteral stents in place. One of the left stents appears retracted, with the distal loop in the distal left ureter and proximal loop not completely visualized. Left renal calculi measure up to 15 mm and appear unchanged. 6 mm calcific density overlying the lower pole of the right kidney may represent renal calculus versus superimposed intraluminal bowel content. Impression: Right and left internal nephroureteral stents as above. One of the left-sided stents appears retracted with distal loop in the left distal ureter. Redemonstration of left renal calculi measuring up to 15 mm. 6 mm calcific density overlying the lower pole the right kidney may represent calculus versus superimposed intraluminal bowel content. Signed by: Mili Crawford MD on 09/07/2019 11:28 AM
[2019-09-07] MEDS ORDERED: FENTANYL CITRATE/PF 100MCG/2 ML INJ ONE (15:11)
[2019-09-07] MEDS ORDERED: MIDAZOLAM HCL 2 MG/2 ML VIAL ONE (15:11)
[2019-09-07] MEDS ORDERED: LABETALOL HCL 0 ML ONE (15:26)
[2019-09-07] MEDS ORDERED: ACETAMINOPHEN/CODEINE 300MG - 30MG TAB PO PRN (15:30)
[2019-09-07] MEDS ORDERED: DIPHENHYDRAMINE HCL 25 MG CAP PO PRN (15:30)
[2019-09-07] MEDS ORDERED: B&O 60MG R/S 60 MG SUPP PR PRN (15:30)
[2019-09-07] MEDS ORDERED: ONDANSETRON HCL INJ 2MG/ML 2ML 2 MG/ML VIAL IV PRN (15:30)
[2019-09-07 16:02] VITALS: BP 166/83
[2019-09-07 16:10] VITALS: BP 166/83
[2019-09-07 16:20] VITALS: BP 166/83
[2019-09-07] MEDS: FLUCONAZOLE 200 MG/100 ML 100 ML IV SCH (17:13)
[2019-09-07] MEDS: DOCUSATE SODIUM 100 MG CAP PO SCH (17:13)
[2019-09-07] MEDS: SODIUM CHLORIDE 0.9% 1000ML 1,000 ML IV SCH (17:14)
--- NOTE | 2019-09-07 17:46 | NUR ---
Received report from Veronica BEAUCHAMP from OR. Patient arrived to the @ 1558 via stretcher. Patient in stable condition, no s/s of distress noted. IV fluids infusing, site asymptomatic and patent, transparent dressing C/D/I. Grady applied and draining blood tinged urine into the drainage bag no clots noted. Bed in lowest position and locked. Call light within reach.
--- NOTE | 2019-09-07 19:12 | NUR ---
Completed bedside shift report and rounding with on coming night nurse. Patient in stable condition, no s/s of distress noted. No pain voiced. IV fluids infusing, site asymptomatic and patent, transparent dressing applied C/D/I. SCDs applied. Bed in lowest position and locked. Call light within reach.
[2019-09-07 20:00] VITALS: BP 134/94
[2019-09-07 21:00] VITALS: BP 134/94
[2019-09-07] MEDS: PIPER-TAZ 3.375 GM 50 ML IV SCH (22:11)
[2019-09-08] VITALS (9 sets, daily range): BP systolic 119–153; BP diastolic 55–89
[2019-09-08] MEDS: SODIUM CHLORIDE 0.9% 1000ML 1,000 ML IV SCH ×3 (05:34→22:57)
[2019-09-08] MEDS: PIPER-TAZ 3.375 GM 50 ML IV SCH ×4 (05:34→22:57)
--- NOTE | 2019-09-08 07:00 | NUR ---
BEDSIDE SHIFT REPORT RECEIVED FROM MIXER TENDER RN. PT DENIES NEEDS AT THIS TIME.
[2019-09-08 09:18] LABS: BASOPHILS # (AUTO) 0.1 (0.0-0.1); BASOPHILS % 0.7 % (0.0-1.0); EOSINOPHILS # (AUTO) 0.2 (0.0-0.4); EOSINOPHILS % 1.2 % (0.0-6.0); HEMATOCRIT 39.2 % (38.2-49.6); HEMOGLOBIN 11.9 g/dL (14.0-18.0); LYMPHOCYTES % 6.1 % (18.0-39.1); MEAN CORPUSCULAR HEMOGLOBIN 25.6 pg (28-32); MEAN CORPUSCULAR HGB CONC 30.4 g/dL (31-35); MEAN CORPUSCULAR VOLUME 84.3 fL (81-99); MONOCYTES # (AUTO) 1.5 (0.2-0.8); MONOCYTES % 9.2 % (4.4-11.3); NEUTROPHILS # (AUTO) 13.2 (2.1-6.9); NEUTROPHILS % 82.2 % (38.7-80.0); PLATELET COUNT 169 x10e3/uL (140-360); RED BLOOD COUNT 4.65 x10e6/uL (4.3-5.7); RED CELL DISTRIBUTION WIDTH 14.3 % (11.7-14.4)
[2019-09-08 09:37] LABS: ANION GAP 12.7 mmol/L (8-16); CALCIUM 8.6 mg/dL (8.4-10.2); CREATININE, SERUM 1.45 mg/dL (0.72-1.25); POTASSIUM 3.7 mmol/L (3.5-5.1)
[2019-09-08] MEDS: DOCUSATE SODIUM 100 MG CAP PO SCH ×2 (09:37→16:50)
[2019-09-08] MEDS ORDERED: DEXTROSE 50% SYRINGE 50 ML IV PRN (11:30)
[2019-09-08] MEDS ORDERED: HYDRALAZINE HCL 25 MG TAB PO PRN (11:30)
[2019-09-08] MEDS: INSULIN LISPRO 100 UNIT/1 ML 3ML VIAL SQ SCH ×3 (12:37→20:34)
[2019-09-08] MEDS: BUPROPION HCL 75 MG TAB PO SCH ×2 (14:21→20:16)
[2019-09-08] MEDS: ESCITALOPRAM OXALATE 10 MG TAB PO SCH (16:50)
[2019-09-08] MEDS: DIPHENHYDRAMINE HCL 25 MG CAP PO SCH (16:50)
[2019-09-08] MEDS: FLUCONAZOLE 200 MG/100 ML 100 ML IV SCH (16:50)
--- NOTE | 2019-09-08 18:15 | History and Physical ---
PRIMARY CARE PHYSICIAN: Benjamin Gayle MD CONSULTANTS: 1. Dr. Berto Johnson. 2. Dr. Anel Iglesias. The patient is admitted post cystoscopy with bilateral stent removal and also left percutaneous nephrostomy tube removal. SUMMARY: The patient is a 54 years male with chronic kidney stone. The patient is now status post cystoscopy with bilateral stent removal, bilateral stone extraction, and left percutaneous nephrostomy tube removal. The patient is otherwise, stable. He has gram-negative rods in his urine. Sensitivities still pending. The patient is receiving IV antibiotics. The patient is otherwise, stable at this time. PAST MEDICAL HISTORY: 1. Bilateral hydronephrosis with kidney stone. 2. Recurrent urinary tract infection. 3. Prostatitis. 4. Morbid obesity with obstructive sleep apnea. 5. Diabetes type 2, on insulin therapy. 6. Hypertension. PAST SURGICAL HISTORY: 1. History of colostomy with reversal due to bowel obstruction with partial colon resection. 2. Umbilical hernia repair with mesh. 3. Hiatal hernia repair. 4. Appendectomy. 5. Multiple cystoscopy and ureteral stent placement and removal. SOCIAL HISTORY: The patient does not smoke or use alcohol. No regular drugs. ALLERGIES: NO KNOWN ALLERGIES. HOME MEDICATIONS: Norvasc, aspirin, bupropion, Benadryl, Lexapro, Glimepiride, hydroxyzine, insulin, Levemir, and . PHYSICAL EXAMINATION: VITAL SIGNS: Temperature is 98, blood pressure is 124/81, pulse rate is 80, and respirations 18. GENERAL: The patient is not in acute distress. HEENT: Normocephalic and atraumatic. Anicteric. NECK: Supple grossly. PULMONARY: Clear. CARDIOVASCULAR: Regular rhythm. ABDOMEN: Soft, morbidly obese. EXTREMITIES: No cyanosis, chronic venous stasis of lower extremities. NEUROLOGIC: No focal deficit. Moving all extremities. LABORATORY: COVID-19 PCR negative. Screening test negative for procedures. Chemistry; sodium is 137, potassium 3.7, chloride 104, bicarb 24, BUN 16, creatinine 1.4, glucose 184. WBC is 16, hemoglobin 11.9, hematocrit 39, and platelets is 169. MICROBIOLOGY: Urine culture grew out to be gram-negative melissa. IMPRESSION: 1. Status post bilateral stent removal and nephrostomy tube removal, and stone extraction. 2. Gram-negative melissa cystitis and prostatitis. Sensitivities still pending. 3. Morbid obesity with obstructive sleep apnea. 4. Baseline diabetes type 2. 5. Hypertension. 6. Dyslipidemia. 7. Multiple chronic medical problem. PLAN: Continue with IV antibiotics. Check the culture. Repeat lab work since the WBC is elevated. Follow up with Dr. Berto Johnson consultation. Follow up with Dr. Iglesias consultation. Resume home medication, insulin sliding scale coverage. MD WILL Burr/MODL /[id number]
--- NOTE | 2019-09-08 19:19 | NUR ---
report received from Wally BEAUCHAMP, stated patient is currently back from procedure, galo in place, draining well, urine felisa colored, no blood clots noted, not to be removed unless approved by urologist, patient awake alert, no distress, CHIROPRACTIC PRACTICE MANAGER notified of patient shower request, per pt he states " I walk without any difficulty" patient offered walker for assistance during ambulation for shower but refused
[2019-09-08] MEDS: QUETIAPINE FUMARATE 100 MG TAB PO SCH (20:16)
[2019-09-08] MEDS: INSULIN GLARGINE 100 UNITS/ML VIAL SC SCH (20:38)
--- NOTE | 2019-09-08 21:56 | Consultation ---
DATE OF CONSULTATION: 09/08/2019 REASON FOR ADMISSION: Pyelonephritis. HISTORY OF PRESENT ILLNESS: The patient is well known to me from before. Discussed with Dr. Berto Johnson at length. The patient who is a morbidly obese 54-year-old, who has history of stent in bilateral renal area, which he had for some time that got infected because of his obesity, and it is very difficult to remove. It was finally moved by Interventional Radiology few weeks ago. He was admitted by Dr. Berto Johnson, stent have to be placed, but he noticed there was significant amount of pus in the renal, even though the patient denies any fever or chills. The patient is being admitted, started on Zosyn. The patient also has diabetes mellitus and obesity. He also was known to have a fungal infection before and started on diflucan. His cultures from the urine showing gram-negative rods. Sensitivities are still pending. PAST MEDICAL HISTORY: As above. PAST SURGICAL HISTORY: As above. ALLERGIES: NKA. SOCIAL HISTORY: There is no smoking, drug abuse, or alcohol abuse. FAMILY HISTORY: Unremarkable. IMPRESSION: Pyelonephritis in the patient with morbidly obesity. I recommend to put a PICC line depending on sensitivity. We will arrange at least 2 more weeks of intravenous antibiotic depending on the sensitivity. Further recommendations to follow. Can discontinue fluconazole if no yeast component in the urine. Continue diabetic control and supportive care. MD JESSI Jaffe/MIGUEL /[id number]
--- NOTE | 2019-09-08 23:05 | NUR ---
PATIENT SEEN SLEEPING, LIGHT SNORE, IV ABT CONTINUED, IV PATENT, EASILY AWAKEN NO S/SX OF HYPOGLYCEMIA NOTED
--- NOTE | 2019-09-08 23:06 | NUR ---
ECHEVARRIA CARE GIVEN, KEENAN CARE GIVEN, 850SS YELLOW COLORED LIGHT SEDIMENTATION URINE NOTED NO HEMATURIA Addendum: 09/09/19 at 0107 by SUNSHINE AGGARWAL RN ECHEVARRIA CARE GIVEN, KEENAN CARE GIVEN, 850CC OF YELLOW COLORED LIGHT SEDIMENTATION URINE EMPTIED FROM ECHEVARRIA, NO HEMATURIA
[2019-09-09] VITALS (12 sets, daily range): BP systolic 136–156; BP diastolic 55–90
--- NOTE | 2019-09-09 00:34 | NUR ---
PATIENT C/O DECREASED COMFORT LEVEL R/T NO CPAP MACHINE AT BEDSIDE, STATES " I USE CPAP AT NIGHT, CAN YOU CALL DOCTOR AND SEE IF I CAN GET ONE", MD BRAVO CONTACTED VIA TELEPHONE, CPAP ORDER OBTAINED, FOR INCREASE COMFORT LEVEL, RESPIRATORY NOTIFIED BY BLADE ALIGNER GWEN
[2019-09-09] MEDS: PIPER-TAZ 3.375 GM 50 ML IV SCH ×2 (05:33→16:29)
[2019-09-09 06:02] LABS: BASOPHILS # (AUTO) 0.1 (0.0-0.1); BASOPHILS % 0.5 % (0.0-1.0); EOSINOPHILS # (AUTO) 0.3 (0.0-0.4); EOSINOPHILS % 2.3 % (0.0-6.0); HEMATOCRIT 37.1 % (38.2-49.6); HEMOGLOBIN 11.7 g/dL (14.0-18.0); LYMPHOCYTES # (AUTO) 1.5 (1.0-3.2); LYMPHOCYTES % 13.2 % (18.0-39.1); MEAN CORPUSCULAR HEMOGLOBIN 27.4 pg (28-32); MEAN CORPUSCULAR HGB CONC 31.5 g/dL (31-35); MEAN CORPUSCULAR VOLUME 86.9 fL (81-99); MONOCYTES # (AUTO) 1.1 (0.2-0.8); MONOCYTES % 9.8 % (4.4-11.3); NEUTROPHILS # (AUTO) 8.2 (2.1-6.9); NEUTROPHILS % 73.8 % (38.7-80.0); PLATELET COUNT 175 x10e3/uL (140-360); RED BLOOD COUNT 4.27 x10e6/uL (4.3-5.7); RED CELL DISTRIBUTION WIDTH 15.3 % (11.7-14.4)
[2019-09-09 06:31] LABS: ANION GAP 12.3 mmol/L (8-16); CALCIUM 8.7 mg/dL (8.4-10.2); CREATININE, SERUM 1.26 mg/dL (0.72-1.25); POTASSIUM 3.3 mmol/L (3.5-5.1)
--- NOTE | 2019-09-09 07:00 | NUR ---
BEDSIDE SHIFT REPORT RECEIVED FROM PLATING FOREMAN RN. PT DENIES NEEDS AT THIS TIME.
--- NOTE | 2019-09-09 07:00 | NUR ---
BEDSIDE SHIFT REPORT RECEIVED FROM STOVE FITTER RN. PT DENIES NEEDS AT THIS TIME.
--- NOTE | 2019-09-09 07:21 | NUR ---
BSSR GIVEN TO DAYSHIFT QUYNH BLAS, PATIENT SLEEPING WITH CPAP IN PLACE, NO DISTRESS NOTED, CALL LIGHT WITHIN REACH ,
[2019-09-09] MEDS: INSULIN LISPRO 100 UNIT/1 ML 3ML VIAL SQ SCH ×4 (07:30→20:49)
[2019-09-09] MEDS: SODIUM CHLORIDE 0.9% 1000ML 1,000 ML IV SCH (08:30)
[2019-09-09] MEDS: QUETIAPINE FUMARATE 100 MG TAB PO SCH ×2 (08:58→20:48)
[2019-09-09] MEDS: DOCUSATE SODIUM 100 MG CAP PO SCH ×2 (08:58→16:29)
[2019-09-09] MEDS: BUPROPION HCL 75 MG TAB PO SCH ×3 (08:58→20:48)
[2019-09-09] MEDS: DIPHENHYDRAMINE HCL 25 MG CAP PO SCH ×2 (08:58→16:29)
[2019-09-09] MEDS: HYDROXYZINE HCL 25 MG TAB PO SCH (08:58)
[2019-09-09] MEDS: AMLODIPINE BESYLATE 10 MG TAB PO SCH (08:58)
[2019-09-09] MEDS: ESCITALOPRAM OXALATE 10 MG TAB PO SCH ×2 (08:58→16:29)
[2019-09-09] MEDS: INSULIN GLARGINE 100 UNITS/ML VIAL SC SCH ×2 (09:01→20:49)
[2019-09-09] MEDS ORDERED: POTASSIUM CHLORIDE 10MEQ EA PO ONE (11:45)
[2019-09-09] MEDS: FLUCONAZOLE 200 MG/100 ML 100 ML IV SCH (16:29)
[2019-09-10] VITALS (7 sets, daily range): BP systolic 126–158; BP diastolic 66–90
[2019-09-10 05:53] LABS: BASOPHILS # (AUTO) 0.1 (0.0-0.1); BASOPHILS % 0.8 % (0.0-1.0); EOSINOPHILS # (AUTO) 0.3 (0.0-0.4); EOSINOPHILS % 3.3 % (0.0-6.0); HEMATOCRIT 40.7 % (38.2-49.6); LYMPHOCYTES # (AUTO) 1.6 (1.0-3.2); LYMPHOCYTES % 17.8 % (18.0-39.1); MEAN CORPUSCULAR HEMOGLOBIN 25.5 pg (28-32); MEAN CORPUSCULAR HGB CONC 29.5 g/dL (31-35); MEAN CORPUSCULAR VOLUME 86.6 fL (81-99); MONOCYTES # (AUTO) 0.8 (0.2-0.8); MONOCYTES % 8.5 % (4.4-11.3); NEUTROPHILS # (AUTO) 6.2 (2.1-6.9); NEUTROPHILS % 69.3 % (38.7-80.0); PLATELET COUNT 190 x10e3/uL (140-360); RED CELL DISTRIBUTION WIDTH 14.2 % (11.7-14.4)
[2019-09-10] MEDS: PIPER-TAZ 3.375 GM 50 ML IV SCH (06:00)
[2019-09-10] MEDS: INSULIN LISPRO 100 UNIT/1 ML 3ML VIAL SQ SCH ×4 (07:30→21:00)
[2019-09-10] MEDS: INSULIN GLARGINE 100 UNITS/ML VIAL SC SCH ×2 (08:26→22:43)
[2019-09-10 08:57] LABS: PLATELET ESTIMATE ADEQUATE; PLATELET MORPHOLOGY COMMENT NORMAL; RBC MORPHOLOGY COMMENT NORMAL
[2019-09-10] MEDS: DOCUSATE SODIUM 100 MG CAP PO SCH ×2 (09:00→17:00)
--- NOTE | 2019-09-10 09:20 | NUR ---
Received critical lab results, urine culture positive for MDRO. Segundo BEAUCHAMP notified.
[2019-09-10] MEDS: HYDROXYZINE HCL 25 MG TAB PO SCH (09:23)
[2019-09-10] MEDS: DIPHENHYDRAMINE HCL 25 MG CAP PO SCH ×2 (09:23→16:50)
[2019-09-10] MEDS: BUPROPION HCL 75 MG TAB PO SCH ×3 (09:24→21:00)
[2019-09-10] MEDS: AMLODIPINE BESYLATE 10 MG TAB PO SCH (09:24)
[2019-09-10] MEDS: QUETIAPINE FUMARATE 100 MG TAB PO SCH ×2 (09:24→21:00)
[2019-09-10] MEDS: ESCITALOPRAM OXALATE 10 MG TAB PO SCH ×2 (09:24→16:50)
--- NOTE | 2019-09-10 11:47 | Progress Note ---
DATE: SUBJECTIVE: The patient is seen and evaluated. Available labs and notes reviewed. Discussed with Dr. Iglesias in details. Please refer to chart for more information. REVIEW OF SYSTEMS: No nausea, vomiting, fever, chills, chest pain, shortness of breath, headache, rash, or dysuria. No complaints at all. PHYSICAL EXAMINATION: VITAL SIGNS: Temperature 98.6, pulse 74, respiration 18, and blood pressure 114/81. Recheck vital signs; temperature 96.9, pulse 65, respirations 17, and blood pressure 142/73. GENERAL: Alert and oriented. No acute distress. CV: S1 and S2. CHEST: Equal expansion. Decreased breath sounds. No acute distress. ABDOMEN: Morbidly obese with a BMI of 58.1, soft and nontender. HEENT: Moist. No pallor. No JVD. EXTREMITIES: Moves all. MEDICATIONS: Medication list reviewed and from ID point of view, the patient is on Zosyn and Diflucan. LABORATORY STUDIES: White count of 8.99, improved from 11.07, hemoglobin 12, and platelet 190. No new BMP available. Serology; coronavirus PCR not detected, 09/04/2019. MICROBIOLOGY: Urine culture is Enterobacter cloacae x2, both of them are resistant to Zosyn. ASSESSMENT AND PLAN: 1. Pyelonephritis. 2. Urinary tract infection. 3. Enterobacter cloacae, MDR. 4. Change Zosyn to Merrem, as both are sensitive to Merrem. Leukocytosis resolved clinically. No obvious acute finding. Electrolyte abnormalities per others. Other medical conditions including diabetes and hypertension. Please refer to chart for more information. Dictated by Martinez Rodriguez PA-C (Al) Anel Iglesias MD /MODL /[id number]
[2019-09-10] MEDS: MEROPENEM 1GM 100 ML IV SCH ×2 (11:56→21:00)
--- NOTE | 2019-09-10 12:30 | NUR ---
Pt unavailable at this time. Pt's CM at bedside. Will follow up as able. LIANA WILKINSON [facility] Spiritual Care Department O: [phone]
--- NOTE | 2019-09-10 12:49 | NUR ---
Spoke to RIC Packer and received order for PICC line and outpatient IV abx. CM spoke to pt at bedside. Pt states he used [facility] previously and would like to use them again. Choice letter signed for [facility]. Copy given to pt with [facility]'s contact information. IMM letter discussed with pt. He verbalized understanding. Pt signed copy. Copy placed in transition of care folder Signed choice letter and IMM placed in chart. Abx referral faxed to [facility] at [phone] / . Yoko Paz with [facility] was informed of referral.
--- NOTE | 2019-09-10 16:40 | Diagnostic Imaging Report ---
EXAMINATION: CHEST XRAY LINE PLACEMENT INDICATION: Line placement COMPARISON: None FINDINGS: LINES/TUBES:Interval placement of left PICC line with tip in the superior vena cava. LUNGS:The lungs are well-inflated. No focal consolidation or pulmonary edema. PLEURA:No pleural effusion or pneumothorax. MEDIASTINUM:The cardiomediastinal silhouette appears normal in size and shape. BONES/SOFT TISSUES:No acute osseous injury. ABDOMEN:No free air under the diaphragm. IMPRESSION: Left PICC line terminates in the superior vena cava. Signed by: Mili Crawford MD on 09/10/2019 4:36 PM
[2019-09-10] MEDS: FLUCONAZOLE 200 MG/100 ML 100 ML IV SCH (16:50)
--- NOTE | 2019-09-10 17:48 | NUR ---
PICC Line team here done with PICC line, STAT CXR Done , per them (Migue BEAUCHAMP), LINE is ok to use
[2019-09-11] VITALS: BP 134/60
[2019-09-11 04:00] VITALS: BP 127/72
[2019-09-11] MEDS: MEROPENEM 1GM 100 ML IV SCH ×2 (05:35→12:49)
[2019-09-11] MEDS: INSULIN LISPRO 100 UNIT/1 ML 3ML VIAL SQ SCH ×2 (07:30→11:30)
[2019-09-11 07:49] VITALS: BP 149/71
[2019-09-11] MEDS: DOCUSATE SODIUM 100 MG CAP PO SCH (08:47)
[2019-09-11] MEDS: AMLODIPINE BESYLATE 10 MG TAB PO SCH (08:47)
[2019-09-11] MEDS: QUETIAPINE FUMARATE 100 MG TAB PO SCH (08:47)
[2019-09-11] MEDS: HYDROXYZINE HCL 25 MG TAB PO SCH (08:47)
[2019-09-11] MEDS: BUPROPION HCL 75 MG TAB PO SCH (08:47)
[2019-09-11] MEDS: DIPHENHYDRAMINE HCL 25 MG CAP PO SCH (08:47)
[2019-09-11] MEDS: ESCITALOPRAM OXALATE 10 MG TAB PO SCH (08:47)
--- NOTE | 2019-09-11 09:04 | NUR ---
PICC placement CXR faxed to [facility] at [phone].
[2019-09-11] MEDS: INSULIN GLARGINE 100 UNITS/ML VIAL SC SCH (09:13)
--- NOTE | 2019-09-11 09:40 | NUR ---
Spoke with Dr. Gannon who states pt can discharge today once outpatient iv abx arranged. JARVIS informed Yoko Paz with [facility]. She will notify nurse to come out to do bedside teaching.
--- NOTE | 2019-09-11 10:03 | Progress Note ---
DATE: ADDENDUM: To job #[id number]. MD JESSI Jaffe/MIGUEL /[id number]
--- NOTE | 2019-09-11 10:08 | Progress Note ---
DATE: SUBJECTIVE: The patient is seen and evaluated. Available labs and notes reviewed. Discussed with Dr. Gannon. Discussed with case management. Please refer to chart for more information. REVIEW OF SYSTEMS: No nausea, vomiting, fever, chills, chest pain, shortness of breath, headache, rash, dysuria. PHYSICAL EXAMINATION: VITAL SIGNS: Temperature is 98.6, pulse 90, respirations 18, and blood pressure 149/71. GENERAL: Alert and oriented, in no acute distress. CV: S1 and S2. CHEST: Equal expansion, decreased breath sounds. ABDOMEN: Soft, morbidly obese with a BMI of 58.1, nontender. HEENT: Moist. No pallor. No JVD. EXTREMITIES: Moves all. No cyanosis or clubbing. MEDICATIONS: Medication list reviewed. From ID point of view, the patient is Merrem and Diflucan. LABORATORY STUDIES: White count of 8.99, hemoglobin 12, and platelets 190. No new BMP available. Serology, Coronavirus PCR not detected, 09/04/2019. Urine culture showed Enterobacter x2, multidrug resistant. IMAGING: Status post PICC line, left upper extremity, yesterday on 09/10/2027. ASSESSMENT AND PLAN: 1. MDR urinary tract infection. 2. Pyelonephritis. 3. Morbid obesity. 4. Diabetes. 5. Hypertension. 6. Depression. Discussed with the attending, Dr. Gannon. Discussed with case management. Antibiotics being set up as an outpatient for a total of 2 weeks of meropenem at 1 g IV piggyback q.8 hours. Creatinine remains at 1.26. This case was discussed with Dr. Iglesias as well in details as far as the antibiotic plans. The patient is status post left upper extremity PICC line, orders placed in for weekly labs while the patient is on IV antibiotics and PICC line removal after the IV antibiotic completed. The patient is to follow up with Dr. Iglesias in the office two weeks after discharge. Please refer to chart for more information. Dictated by Martinez Rodriguez PA-C (Al) Anel Iglesias MD /MODL /[id number]
[2019-09-11 11:05] VITALS: BP 157/68
--- NOTE | 2019-09-11 11:08 | NUR ---
Magdalena Guerra will come around noon to do bedside teaching with pt
--- NOTE | 2019-09-11 12:32 | NUR ---
Bedside teaching was completed. CM spoke to Yoko Paz. States nursing will be done by a [place] nurse. Medications will be delivered this evening. Pt told nurse he was comfortable administering evening dose tonight. QUYNH Raymond was updated and will call Dr. Gannon for dc order.
--- NOTE | 2019-09-11 14:02 | NUR ---
WOUND CARE CONSULT FOR 54 YO MALE HX OFSTENT PLACEMENT KALIE 22 ON CONSERVATIVE PUP STATUS AND INTERVENTIONS AND VISCO MATTRESS LABS: WBC-8.99 HGB_12 GLUCOSE-PEND SKIN ASSESSMENT COMPLETE PATIENT PRESENTS WITH DRIED OPEN BLISTER REPORTED R/T COMPRESSION PUMP USAGE 2CM X3CM WITH YELLOW BROWN SLOUGH COVER RECOMMENDATIONS: NURSING TO CONTINUE TO MAINTAIN CONSERVATIVE PUP STATUS AND INTERVENTIONS AND VISCO MATTRESS NURSING TO CONTINUE TO ASSIST PATIENT OUT OF BED FOR MEALS AND MUCH TOLERATED NURSING TO CONTINUE TO ASSIST PATIENT NEEDED WITH MEALS AND NUTRITIONAL SUPPLEMENTS TO ENSURE PROPER REQUIREMENTS FOR HEALING NURSING TO CONTINUE TO OFFLOAD FEET AND HEELS NEEDED WITH PILLOW SUSPENSION WHEN IN BED NURSING TO CLEAN LEFT LOWER EXTREMITY UNGRADEABLE BLISTER WITH NORMAL SALINE DAILY AND APPLY SANTYL OINTMENT AND 4X4 COVER WITH ALLEVYN FOAM DRESSING Addendum: 09/11/19 at 1407 by Andre Hinton RN Amended: Links added.
[2019-09-11 15:18] VITALS: BP 152/73
[2019-09-11] MEDS ORDERED: ONDANSETRON HCL 4 MG ORAL DISINTEGRATING TAB PO PRN (15:30)
--- NOTE | 2019-09-11 16:25 | NUR ---
Patient discharged Home, Called Dr Shaw he said patient will be going home with Grady's catheter. PICC line is intact, per Case management IV antibiotic will be deliver to Home, dressing intact on left Leg, IV canula from Right forearm removed with tip intact, no ss of infiltration noted, transported via wheelchair to [facility], no distress noted, family here to pick him, discharge order rcvd from Dr BRAVO
--- NOTE | 2019-09-12 03:07 | Discharge Summary ---
PRIMARY CARE PHYSICIAN: Dr. Benjamin Gayle. CONSULTANTS: 1. Dr. Berto Johnson. 2. Dr. Anel Iglesias. FINAL DIAGNOSES: 1. Status post bilateral ureteral stent removal and also percutaneous tube removal done by Dr. Berto Johnson. The patient admitted for postoperative care. 2. Baseline morbid obesity, recurrent prostatitis, recurrent urinary tract infection. 3. Multi-drug resistant bacteria infection of urinary tract system and proctitis. Enterococcus. The patient arranged for meropenem IV by Dr. Iglesias for 14 days. SUMMARY: The patient is a 54-year-old male, morbidly obese, underwent bilateral ureteral stent removal and sent with nephrostomy tube. The patient postoperatively is stable. The patient's urine culture grew out gram-negative melissa and bacilli. The patient also had Enterococcus. The patient has been arranged for IV antibiotic done by Dr. Iglesias. The patient will be going home with meropenem for 14 days. staffing account manager has set up for the patient for going home. The patient is otherwise stable and discharged home to resume home medication. The patient to follow up with Dr. Anel Iglesias in approximately 1 to [address] Berto Johnson for postoperative care. The patient will resume his home medication. Resume same diet. Activity as tolerated. He does have sleep apnea and he will resume his CPAP as well. The patient is stable and discharged home today. MD WILL Burr/DOMONIQUEL /[id number]
[2019-09-12] MEDS ORDERED: COLLAGENASE 5 GM TUBE TP SCH (09:00)
--- OUTSIDE RECORDS SUMMARY | 2019-10-12 02:02 | XMS REPORT ---
Author Author Remy Gayle Organization [employer] Address Unknown Phone Unavailable Care Team Providers Care Automotive Sales Manager Name Role Phone Benjamin Gayle CP Unavailable Allergies No Known Allergies Problems Problem Type Condition Code Onset Dates Condition Statu s Problem Type 2 diabetes mellitus wit hout complication, without long-term current use of insulin E11.9 Active Problem Kidney stones N20.0 Active Problem Bipolar disorder, in full remission, mos t recent episode depressed F31.76 Active Problem Uncontrolled hypertension I10 Ac tive Problem Morbid obesity due to excess calories E66.01 Active Problem Chronic kidney disease, stage 3 (moderate) N18.3 Active Problem Annual physical exam Z00.00 Active Problem Type 2 diabetes mellitus with diabetic chronic kidney disease E11.22 Active Problem BMI 50.0-59.9, adult Z68.43 Active Problem Benign hypertension I10 Active Problem Colon cancer screening Z12.11 Activ e Problem CKD (chronic kidney disease) stage 3, GFR 30-59 ml/min N18.3 Active Medications No Known Medications Results No Known Results Summary Purpose [employer] Submission
--- OUTSIDE RECORDS SUMMARY | 2019-10-12 02:02 | XMS REPORT ---
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 Name Role Phone Benjamin Gayle CP Unavailable [...] t recent episode depressed F31.76 Active Problem Chronic kidney disease, stage 3 (moderate) N18.3 Active Assessment Nephrostomy status Z93.6 Active Problem Annual physical exam Z00.00 Active Assessment Type 2 diabetes mellitus with diabetic chronic k idney disease E11.22 Active Problem Type 2 diabetes mellitus with diabetic chronic kidney disease E11.22 Active Problem BMI 50.0-59.9, adult Z68.43 Active Problem Benign hypertension I10 Active Problem Colon cancer screening Z12.11 Activ e Problem CKD (chronic kidney disease) stage 3, GFR 30-59 ml/min N18.3 Active Assessment BMI 50.0-59.9, adult Z68.43 Active Assessment Kidney stones N20.0 Active Assessment CKD (chronic kidney disease) stage 3, GFR 30-59 ml/min N18.3 Active Assessment Benign hypertension I10 Active Assessment Annual physical exam Z00.00 Active Assessment Type 2 diabetes mellitus wit hout complication, without long-term current use of insulin E11.9 Active Problem Uncontrolled hypertension I10 Ac tive Assessment Colon cancer screening Z12.11 Activ e Problem Morbid obesity due to excess calories E66.01 Active Medications Medication Code System Code Instructions Start Date End Date Status Dosage Glimepiride ND 10891713104 4 MG Orally Once a day A ctive 1 tablet with breakfast or the first main meal of the day Amlodipine Besylate ND 22315980753 10 MG Orally Once a day Apr 12, 2018 Active 1 tablet Escitalopram Oxalate ND 14894541614 20 mg Orally BID Active 1 tablet Levemir FlexTouch [facility] 30327123132 100 UNIT/ML Subcutaneous once a day Active 80 units Quetiapine Fumarate [facility] 54528395427 300 MG Orally at bedtime Active 2 tablet BuPROPion HCl (XL) [facility] 72485721792 150 MG Orally Once a day Active 3 tablet in the morning Banophen [facility] 92142439741 50 mg Orally at bedtime Act galilea 2 tablet Vital Signs Date/Time: August 10, 2019 BMI na Index Weight NA over 400 lbs Height 72 in Temperature 976.3 F Blood Pressure Diastolic 89 mm Hg Blood Pressure Systolic 145 mm Hg Results No Known Results Summary Purpose [employer] Submission
--- OUTSIDE RECORDS SUMMARY | 2019-10-12 02:02 | XMS REPORT ---
Author Author Remy Gayle Organization [employer] Address Unknown Phone Unavailable Care Team Providers Care Bag Shop Worker Name Role Phone Benjamin Gayle CP Unavailable Allergies, Adverse Reactions, Alerts Substance Reaction Event Type N.K.D.A. Info Not Available Non Drug Allergy Problems Problem Type Condition Code Onset Dates Condition Statu s Assessment Kidney stones N20.0 Active Assessment Acute cystitis with hematuria N30.01 Active Assessment BMI 50.0-59.9, adult Z68.43 Active Assessment Need for influenza vaccination Z23 Active Assessment Benign hypertension I10 Active Assessment Type 2 diabetes mellitus wit hout complication, without long-term current use of insulin E11.9 Active Problem Benign hypertension I10 Active Problem Kidney stones N20.0 Active Problem BMI 50.0-59.9, adult Z68.43 Active Problem Type 2 diabetes mellitus wit hout complication, without long-term current use of insulin E11.9 Active Problem Morbid obesity due to excess calories E66.01 Active Problem Bipolar disorder, in full remission, mos t recent episode depressed F31.76 Active Problem Uncontrolled hypertension I10 Ac tive Medications Medication Code System Code Instructions Start Date End Date Status Dosage Levemir FlexTouch [facility] 18245236833 100 UNIT/ML Subcutaneous once a day Active 80 units Quetiapine Fumarate ND 52996205639 300 MG Orally at bedtime Active 2 tablet Glimepiride ND 67548064675 4 MG Orally Once a day A ctive 1 tablet with breakfast or the first main meal of the day Amlodipine Besylate ND 89173526949 10 MG Orally Once a day Apr 12, 2018 Active 1 tablet Banophen ND 93508501213 50 mg Orally at bedtime Act galilea 2 tablet BuPROPion HCl (XL) ND 99754184261 150 MG Orally Once a day Active 3 tablet in the morning Escitalopram Oxalate ND 90852484996 20 mg Orally BID Active 1 tablet Vital Signs Date/Time: Dec 13, 2018 BMI 53.97 Index Weight 398 lbs Height 72 in Temperature 98.0 F Blood Pressure Diastolic 74 mm Hg Blood Pressure Systolic 118 mm Hg Results No Known Results Immunizations Vaccine Administration Date FLUCELVAX QUADRIVALENT Dec 13, 2018 Summary Purpose [employer] Submission
--- OUTSIDE RECORDS SUMMARY | 2019-10-12 02:02 | XMS REPORT ---
Author Author Remy Gayle Organization [employer] Address Unknown Phone Unavailable Care Team Providers Care Frozen Food Department Manager Name Role Phone Benjamin Gayle CP Unavailable Allergies, Adverse Reactions, Alerts Substance Reaction Event Type N.K.D.A. Info Not Available Non Drug Allergy Problems Problem Type Condition Code Onset Dates Condition Statu s Assessment Type 2 diabetes mellitus wit hout complication, without long-term current use of insulin E11.9 Active Assessment Kidney stones N20.0 Active Assessment BMI 50.0-59.9, adult Z68.43 Active Assessment WILLIS (acute kidney injury) N17.9 Ac tive Assessment Bipolar disorder, in full remission, mos t recent episode depressed F31.76 Active Problem Benign hypertension I10 Active Problem [...] Date End Date Status Dosage Quetiapine Fumarate ND 75503961439 300 MG Orally at bedtime Active 2 tablet Escitalopram Oxalate ND 67495928698 20 mg Orally BID Active 1 tablet Amlodipine Besylate ND 34231157754 10 MG Orally Once a day Apr 12, 2018 Active 1 tablet BuPROPion HCl (XL) ND 78472757102 150 MG Orally Once a day Active 3 tablet in the morning Levemir FlexTouch ND 62687237812 100 UNIT/ML Subcutaneous once a day Active 80 units Banophen ND 79519251113 50 mg Orally at bedtime Act galilea 2 tablet Glimepiride ND 15146447855 4 MG Orally Once a day A ctive 1 tablet with breakfast or the first main meal of the day Vital Signs Date/Time: Feb 02, 2019 BMI 52.89 Index Weight 390 lbs Height 72 in Temperature 98.3 F Blood Pressure Diastolic 88 mm Hg Blood Pressure Systolic 165 mm Hg Results Name Result Date Reference Range Unit Abnormali ty Flag HEMOGLOBIN A1c ----HEMOGLOBIN A1c 6.2 [id number] 4.2-5.6 % H Summary Purpose [employer] Submission
--- NOTE | 2019-10-15 03:51 | Operative Report ---
DATE OF PROCEDURE: 09/07/2019 SURGEON: Berto Johnson MD PREOPERATIVE DIAGNOSES: 1. Bilateral nephrolithiasis. 2. Right indwelling ureteral stent. 3. Left nephrostomy. POSTOPERATIVE DIAGNOSES: 1. Bilateral nephrolithiasis. 2. Right indwelling ureteral stent. 3. Left nephrostomy. OPERATIONS PERFORMED: 1. Cystourethroscopy with complicated removal of right indwelling ureteral stent (separate procedure performed for the right indwelling ureteral stent on the separate scope). 2. Right ureteroscopy with holmium laser lithotripsy and insertion of a new stent (separate procedure performed for the right nephrolithiasis). 3. Left ureteroscopy with holmium laser lithotripsy and insertion of stent (separate procedure performed for the left nephrolithiasis). 4. Radiological services with supervision and interpretation of ureteroscopy, no radiologist present. 5. Supervision of fluoroscopy, no radiologist present. 6. Removal of nephrostomy tube with fluoroscopic guidance (separate procedure performed for the nephrostomy tube). ANESTHESIA: General. COMPLICATIONS: None. CLINICAL SUMMARY: Remy Mendoza is a morbidly obese 54-year-old man with a history of pelvic fracture and history of an 19-year-old who sustained retained stent. The stent was eventually removed in all with all its pieces by the interventional radiologist. We therefore are bringing the patient to the operating room for the above procedures. He is aware of the risks of bleeding, infection, injury to adjacent structures, need for additional procedures, and elected to proceed. OPERATIVE PROCEDURE IN DETAIL: Informed consent was verified. Remy Mendoza was properly identified, taken to the operating room, and placed on the cystoscopy table in supine position. Anesthesia was uneventfully begun. The patient was carefully and gently repositioned in the dorsal lithotomy position with all pressure points carefully well padded. His genitalia were prepared and draped in usual sterile fashion. The cystoscope sheath with the visual obturator in place was atraumatically inserted. The patient's urethra was guided down the urethra. There was remarkable for tortuosity due to the open book pelvic fracture that the patient has had for a couple of decades. We negotiated the scope into the bladder. We placed a guidewire into the right ureter alongside the stent and then grasped the stent and extracted. The flexible ureteroscope was then placed over the guidewire and guided to the level of the patient's kidney. Panendoscopy revealed stones. We performed holmium laser lithotripsy to break up the larger stones into small fragments. Once all the stones that were visible fragmented, we placed a guidewire with cystoscopic fluoroscopic guidance. An indwelling ureteral stent was then placed. It was coiled into the patient's kidneys as well as the patient's bladder. The retaining suture was cut short. Similar set of maneuvers were performed on the left, except the fact that there was no stent. We placed a guidewire and placed a flexible ureteroscope up into the kidney. Holmium laser lithotripsy was performed of a large stone burden. We pulverized the stone into all fragments that should be passable and we placed a stent. Interpretation of retrograde ureteropyelography contrast was instilled in retrograde fashion bilaterally. There was bilateral chronic-appearing hydronephrosis, filling defect corresponding to the stone. The stents were in good position, coiled the patient's kidneys as well as the patient's bladder at the end of the case. We drained the bladder and then disconnected the nephrostomy tube under fluoroscopic guidance. Once the locking suture was disconnected, we were able to negotiate the nephrostomy tube with fluoroscopic guidance without disturbing the stent. There were no complications to the procedure. The patient the procedure well. Estimated blood loss was minimal. The patient was uneventfully reversed from anesthesia and taken to recovery room in stable condition. Plans will be to admit the patient for intravenous antibiotics as well as pain control and we will of course plan on returning the patient to the operating room for bilateral ureteroscopy with stent removal. Hopefully, the patient will be stent free and stone free in the very near future. Berto MD Elizabe[facility] [place]/MODL /[id number] cc: Benjamin Gayle MD
== END 2019-09-11 16:06 | disposition home or self-care (01) | DRG 660 ==
LOC: OR 09:40 → PACU V 15:31 → MED/SURG2 16:11
PROVIDERS: ADMIT Internal Medicine; ATTEND Internal Medicine
PROC: 0T788DZ Dilation of Bilateral Ureters with Intraluminal Device, Via Natural or Artificial Opening Endoscopic (ICD-10-PCS; 2019-09-07)
PROC: 0TP98DZ Removal of Intraluminal Device from Ureter, Via Natural or Artificial Opening Endoscopic (ICD-10-PCS; 2019-09-07)
PROC: 0TF48ZZ Fragmentation in Left Kidney Pelvis, Via Natural or Artificial Opening Endoscopic (ICD-10-PCS; 2019-09-07)
PROC: 0TF38ZZ Fragmentation in Right Kidney Pelvis, Via Natural or Artificial Opening Endoscopic (ICD-10-PCS; 2019-09-07)
PROC: 0TP5X0Z Removal of Drainage Device from Kidney, External Approach (ICD-10-PCS; 2019-09-07)
PROC: 02HV33Z Insertion of Infusion Device into Superior Vena Cava, Percutaneous Approach (ICD-10-PCS; principal; 2019-09-10)
PROC: B548ZZA Ultrasonography of Superior Vena Cava, Guidance (ICD-10-PCS; 2019-09-10)
DX: T83.511A Infection and inflammatory reaction due to indwelling urethral catheter, initial encounter (principal); N13.6 Pyonephrosis; N30.00 Acute cystitis without hematuria; Z16.24 Resistance to multiple antibiotics; Z68.43 Body mass index [BMI] 50.0-59.9, adult; Z87.440 Personal history of urinary (tract) infections; G47.33 Obstructive sleep apnea (adult) (pediatric); E66.01 Morbid (severe) obesity due to excess calories; N41.9 Inflammatory disease of prostate, unspecified; E78.5 Hyperlipidemia, unspecified; F32.9 Major depressive disorder, single episode, unspecified; B96.89 Other specified bacterial agents as the cause of diseases classified elsewhere; E11.22 Type 2 diabetes mellitus with diabetic chronic kidney disease; I12.9 Hypertensive chronic kidney disease with stage 1 through stage 4 chronic kidney disease, or unspecified chronic kidney disease; N18.2 Chronic kidney disease, stage 2 (mild); Z11.59 Encounter for screening for other viral diseases; T83.593A Infection and inflammatory reaction due to other urinary stents, initial encounter; N20.0 Calculus of kidney
CPT/HCPCS: 36415; 36569; 71045; 74018; 74420; 80048; 80053; 82948; 83970; 84550; 85025; 87086; 87186; 88300; 93005; 94660; 96372; 99251; C1766; C1769; C2617; J0330; J1450; J1815; J2001; J2250; J2405; J2543; J3010; J3410; J7030; U0002

== ENCOUNTER 2019-09-14 08:58 | Emergency (ER) | payer MEDICARE, OTHER ==
[~2019-09-14] VITALS: Ht 182.9 cm; Wt 194.1 kg
--- NOTE | 2019-09-14 09:34 | Emergency Department Note ---
History of Present Illnes History of Present Illness Chief Complaint: General Medicine Complaints History of Present Illness This is a 54 year old male c/o dislodged PICC line - no complaints PATIENT IN FROM HOME WITH COMPLAINTS THAT HIS PICC LINE CAME OUT LAST NIGHT; PATIENT WITH NO OTHER COMPLAINTS Historian: Patient Arrival Mode: Car Onset (how long ago): day(s) (today) Radiation: Denies non-radiation, Denies back, Denies neck, Denies extremity, Denies abdomen, Denies periumbilical, Denies flank, Denies proximal, Denies distal, Denies other Onset quality: sudden Duration (how long): day(s) (today) Context: Denies recent illness, Denies recent surgery, Denies recent immobilization, Denies recent travel, Denies trauma/injury, Denies new medications, Denies hx of DVT/PE, Denies non-compliance w/ medications, Denies other Relieving factors: none Exacerbating factors: none Associated symptoms: Denies denies other symptoms, Denies confusion, Denies chest pain, Denies cough, Denies diaphoresis, Denies fever/chills, Denies headaches, Denies loss of appetite, Denies malaise, Denies nausea/vomiting, Denies rash, Denies seizure, Denies shortness of breath, Denies syncope, Denies weakness, Denies other Past Medical/Family History Physician Review I have reviewed the patient's past medical and family history. Any updates have been documented here. Past Medical History Recent Fever: No Clinical Suspicion of Infectio: No New/Unexplained Change in Ment: No Past Medical History: Hypertension, Diabetes Other Medical History: SLEEP APNEA, Past Surgical History: Hernia Repair, Colon Resection Other Surgery: KIDNEY STONE, ABCESS REMOVALS WITH I&D-1989. Social History Smoking Cessation: Never Smoker Counseling Performed: No Alcohol Use: Occasional Any Illegal Drug Use: No Physically hurt or threatened: No Other Any Pre-Existing Lines (PICC,: No Review of Systems Review of Systems Constitutional: Reports no symptoms EENTM: Reports no symptoms Cardiovascular: Reports no symptoms Respiratory: Reports no symptoms Gastrointestinal: Reports no symptoms Genitourinary: Reports no symptoms Musculoskeletal: Reports no symptoms Integumentary: Reports no symptoms Neurological: Reports no symptoms Psychological: Reports no symptoms Endocrine: Reports no symptoms Hematological/Lymphatic: Reports no symptoms Physical Exam Related Data Allergies: Coded Allergies: No Known Allergies (Unverified , 11/22/18) Triage Vital Signs Vital Signs Date Time Temp Pulse Resp B/P (MAP) Pulse Ox O2 Delivery O2 Flow Rate FiO2 09/14/19 09:13 97.1 97 22 130/81 95 Room Air Vital signs reviewed: Yes Physical Exam CONSTITUTIONAL Constitutional: Present well-developed, Present well-nourished HENT HENT: Present normocephalic, Present atraumatic, Present oropharynx clear/moist, Present nose normal HENT L/R: Present left ext ear normal, Present right ext ear normal EYES Eyes: Reports PERRL, Reports conjunctivae normal NECK Neck: Present ROM normal PULMONARY Pulmonary: Present effort normal, Present breath sounds normal CARDIOVASCULAR Cardiovascular: Present regular rhythm, Present heart sounds normal, Present capillary refill normal, Present normal rate GASTROINTESTINAL Abdominal: Present soft, Present nontender, Present bowel sounds normal GENITOURINARY Genitourinary: Present exam deferred SKIN Skin: Present warm, Present dry MUSCULOSKELETAL Musculoskeletal: Present ROM normal NEUROLOGICAL Neurological: Present alert, Present oriented x 3, Present no gross motor or sensory deficits PSYCHOLOGICAL Psychological: Present mood/affect normal, Present judgement normal Exam - additional comments accidently pulled out picc line pt currently on abx at home for kidney infection denies pain n/v abd pain sob cp stovall dizziness Results Laboratory Laboratory Procedure: [id number] DX/CHEST SINGLE (PORTABLE) Exam Date: Exam Time: REPORT STATUS: Signed EXAMINATION: CHEST SINGLE (PORTABLE) INDICATION: ^need better penatration for radiologist to read COMPARISON: Chest radiograph [id number] 3007 FINDINGS: AP view TUBES and LINES: The left PICC is better visualized now with the tip overlying the mid SVC. LUNGS: Lungs are well inflated. Minimal reticular opacities in both lung bases which has improved likely due to improved inspiration. No new consolidations. PLEURA: No pleural effusion or pneumothorax. HEART AND MEDIASTINUM: The cardiomediastinal silhouette is unremarkable. BONES AND SOFT TISSUES: No acute osseous lesion. Soft tissues are unremarkable. UPPER ABDOMEN: No free air under the diaphragm. IMPRESSION: Left PICC with tip overlying the mid SVC. No pneumothorax. Minimal reticular opacities in the lung bases which have improved with better inspiration of the lungs. Signed by: Dr. Donnell Bustamante M.D. on 09/14/2019 3:09 PM Dictated By: DONNELL BUSTAMANTE MD Transcribed By: CHANELLE on 09/14/19 1509 COPY TO: ARLINE CANTU~ Lab results reviewed: Yes Assessment & Plan Medical Decision Making MDM piccline dislodged this am ordered piccline replacement pt denies any complaints Reassessment Reassessment discussed plan of care and f/u instructions Assessment & Plan Final Impression: (1) PICC (peripherally inserted central catheter) in place Depart Disposition: HOME, SELF-CARE Last Vital Signs Date Time Temp Pulse Resp B/P (MAP) Pulse Ox O2 Delivery O2 Flow Rate FiO2 09/14/19 09:13 97.1 97 22 130/81 95 Room Air Home Meds Reported Medications Aspirin (ASPIR 81) 81 Mg Tablet., 81 MG PO DAILY 09/03/19 Diphenhydramine Hcl (BANOPHEN) 50 Mg Capsule, 50 MG PO BID 09/03/19 Quetiapine Fumarate (QUETIAPINE FUMARATE) 100 Mg Tablet, 300 MG PO BID, #30 TAB 02/13/19 Hydroxyzine Hcl (HYDROXYZINE HCL) 25 Mg Tablet, 50 MG PO DAILY, #30 TAB 02/13/19 Diphenhydramine Hcl (BENADRYL) 25 Mg Capsule, 50 MG PO BID 02/13/19 Insulin Detemir (LEVEMIR) 100 Unit/1 Ml Vial, 60 UNITS SC BID 11/22/18 Bupropion Hcl (BUPROPION HCL) 75 Mg Tablet, 150 MG PO TID, #30 TAB 11/22/18 Escitalopram Oxalate (LEXAPRO) 10 Mg Tablet, 20 MG PO BID, #30 TAB 11/22/18 Amlodipine Besylate (AMLODIPINE BESYLATE) 10 Mg Tablet, 10 MG PO DAILY, #30 TAB 11/22/18 Glimepiride (GLIMEPIRIDE) 2 Mg Tablet, 4 MG PO DAILY, TAB 11/22/18 ARLINE CANTU Sep 14, 2019 09:34
--- NOTE | 2019-09-14 13:58 | Diagnostic Imaging Report ---
EXAMINATION: CHEST XRAY LINE PLACEMENT INDICATION: ^piccline placement ^[id number] ^[id number] COMPARISON: 09/09/2018 FINDINGS: AP view TUBES and LINES: Left PICC is not well visualized and can be followed only to the area of the brachiocephalic vein. LUNGS: Lungs are well inflated. Mildly improved bilateral interstitial lung markings. No new consolidations. PLEURA: No pleural effusion or pneumothorax. HEART AND MEDIASTINUM: The cardiac silhouette is mildly prominent. BONES AND SOFT TISSUES: No acute osseous lesion. Soft tissues are unremarkable. UPPER ABDOMEN: No free air under the diaphragm. IMPRESSION: Incomplete evaluation of the left PICC which can be follow-up to the level of the brachiocephalic vein. Consider follow-up with better penetration. Mildly decreased reticular opacities are suggestive of improving interstitial edema. Signed by: Dr. Nathalie Cox M.D. on 09/14/2019 1:55 PM
--- NOTE | 2019-09-14 15:13 | Diagnostic Imaging Report ---
EXAMINATION: CHEST SINGLE (PORTABLE) INDICATION: ^need better penatration for radiologist to read COMPARISON: Chest radiograph [id number] FINDINGS: AP view TUBES and LINES: The left PICC is better visualized now with the tip overlying the mid SVC. LUNGS: Lungs are well inflated. Minimal reticular opacities in both lung bases which has improved likely due to improved inspiration. No new consolidations. PLEURA: No pleural effusion or pneumothorax. HEART AND MEDIASTINUM: The cardiomediastinal silhouette is unremarkable. BONES AND SOFT TISSUES: No acute osseous lesion. Soft tissues are unremarkable. UPPER ABDOMEN: No free air under the diaphragm. IMPRESSION: Left PICC with tip overlying the mid SVC. No pneumothorax. Minimal reticular opacities in the lung bases which have improved with better inspiration of the lungs. Signed by: Dr. Nathalie Cox M.D. on 09/14/2019 3:09 PM
[2019-09-14 15:34] VITALS: BP 159/89
== END 2019-09-14 15:35 | disposition home or self-care (01) ==
LOC: ER 10:08
DX: Z45.2 Encounter for adjustment and management of vascular access device (principal); I10 Essential (primary) hypertension; E11.9 Type 2 diabetes mellitus without complications; G47.30 Sleep apnea, unspecified; Z98.0 Intestinal bypass and anastomosis status
CPT/HCPCS: 36569; 71045; 99283

== ENCOUNTER 2019-11-16 10:33 | Inpatient (IN) | payer MEDICARE, OTHER ==
[2019-11-12 11:50] LABS: BASOPHILS # (AUTO) 0.1 (0.0-0.1); BASOPHILS % 1.1 % (0.0-1.0); EOSINOPHILS # (AUTO) 0.3 (0.0-0.4); EOSINOPHILS % 3.5 % (0.0-6.0); HEMATOCRIT 40.4 % (38.2-49.6); HEMOGLOBIN 12.3 g/dL (14.0-18.0); LYMPHOCYTES # (AUTO) 1.8 (1.0-3.2); LYMPHOCYTES % 18.8 % (18.0-39.1); MEAN CORPUSCULAR HEMOGLOBIN 25.3 pg (28-32); MEAN CORPUSCULAR HGB CONC 30.4 g/dL (31-35); MEAN CORPUSCULAR VOLUME 83.1 fL (81-99); MONOCYTES # (AUTO) 0.7 (0.2-0.8); MONOCYTES % 7.1 % (4.4-11.3); NEUTROPHILS # (AUTO) 6.5 (2.1-6.9); PLATELET COUNT 247 x10e3/uL (140-360); RED BLOOD COUNT 4.86 x10e6/uL (4.3-5.7)
[2019-11-12 12:06] LABS: CALCIUM 8.9 mg/dL (8.4-10.2); CREATININE, SERUM 1.37 mg/dL (0.72-1.25)
[~2019-11-16] VITALS: Ht 182.9 cm; Wt 156.5 kg
[2019-11-16] MEDS ORDERED: GENTAMICIN 80MG/NS 100 ML 200 ML IV ONE (11:07)
[2019-11-16] MEDS ORDERED: LEVOFLOXACIN 250MG/D5W 50ML 50 ML ONE (11:07)
[2019-11-16] MEDS ORDERED: PIPER-TAZ 3.375 GM 50 ML ONE (11:07)
[2019-11-16] MEDS ORDERED: LEVOFLOXACIN 500MG/D5W 100ML 100 ML IV ONE (11:07)
[2019-11-16] MEDS ORDERED: IOPAMIDOL 300MG/ML 50ML INFUS..BTL IV ONE (13:00)
[2019-11-16] MEDS ORDERED: B&O 60MG R/S 60 MG SUPP PR ONE (13:00)
[2019-11-16] MEDS ORDERED: EPHEDRINE SULFATE INJ 50 MG/ML VIAL ONE (14:11)
[2019-11-16] MEDS ORDERED: DEXAMETHASONE SOD PHOS INJ 4 MG/ML VIAL ONE (14:11)
[2019-11-16] MEDS ORDERED: SUCCINYLCHOLINE CHLORIDE 20 MG/ML 10ML VIAL ONE (14:11)
[2019-11-16] MEDS ORDERED: GLYCOPYRROLATE INJ 0.2 MG/ML VIAL ONE (14:11)
[2019-11-16] MEDS ORDERED: ONDANSETRON HCL INJ 2MG/ML 2ML 2 MG/ML VIAL ONE (14:11)
[2019-11-16] MEDS ORDERED: VASOPRESSIN INJ 20 UNIT/ML VIAL ONE (14:11)
[2019-11-16] MEDS ORDERED: LIDOCAINE HCL 2% LOCAL INJ 5 ML SDV VIAL INJ ONE (14:11)
[2019-11-16] MEDS ORDERED: NEOSTIGMINE 1 MG/ML 10ML VIAL ONE (14:11)
[2019-11-16] MEDS ORDERED: ROCURONIUM BROMIDE 10 MG/ML 5ML VIAL IV ONE (14:11)
[2019-11-16] MEDS ORDERED: PROPOFOL IV EMULSION 10 MG/ML 20 ML VIAL ONE (14:11)
[2019-11-16] MEDS ORDERED: SEVOFLURANE INHAL SOLN 250 ML PEN BTL ONE (14:11)
[2019-11-16] MEDS ORDERED: PHENYLEPHRINE HCL 1% 10 MG/ML VIAL ONE (14:11)
[2019-11-16] MEDS ORDERED: MIDAZOLAM HCL 2 MG/2 ML VIAL ONE (14:45)
[2019-11-16] MEDS ORDERED: FENTANYL CITRATE/PF 100MCG/2 ML INJ ONE (14:45)
[2019-11-16] MEDS ORDERED: MORPHINE SULFATE 1 MG/ML 30ML PCA IV PRN (15:00)
[2019-11-16] MEDS ORDERED: ONDANSETRON HCL INJ 2MG/ML 2ML 2 MG/ML VIAL IV PRN (15:00)
[2019-11-16] MEDS ORDERED: DIPHENHYDRAMINE HCL INJ 50 MG/ML VIAL IM PRN (15:00)
[2019-11-16] MEDS ORDERED: NALOXONE HCL INJ 0.4 MG/ML AMP IV PRN (15:00)
[2019-11-16 15:58] VITALS: BP 123/81
[2019-11-16] MEDS: SOD CHL 0.45%/POT CHL 20MEQ 1,000 ML IV SCH (16:00)
[2019-11-16] MEDS: DOCUSATE SODIUM 100 MG CAP PO SCH (17:00)
[2019-11-16] MEDS: FLUCONAZOLE 200 MG/100 ML 100 ML IV SCH (17:00)
[2019-11-16 17:21] VITALS: BP 123/81
[2019-11-16 17:24] VITALS: BP 123/81
[2019-11-16] MEDS ORDERED: LEVOFLOXACIN 500MG/D5W 100ML 100 ML IV SCH (18:00)
[2019-11-16 19:30] LABS: BASOPHILS # (AUTO) 0.1 (0.0-0.1); BASOPHILS % 0.5 % (0.0-1.0); EOSINOPHILS % 0.3 % (0.0-6.0); HEMOGLOBIN 11.8 g/dL (14.0-18.0); LYMPHOCYTES # (AUTO) 0.6 (1.0-3.2); LYMPHOCYTES % 4.1 % (18.0-39.1); MEAN CORPUSCULAR HEMOGLOBIN 25.3 pg (28-32); MEAN CORPUSCULAR HGB CONC 30.3 g/dL (31-35); MEAN CORPUSCULAR VOLUME 83.7 fL (81-99); MONOCYTES # (AUTO) 0.3 (0.2-0.8); MONOCYTES % 2.1 % (4.4-11.3); NEUTROPHILS # (AUTO) 12.8 (2.1-6.9); NEUTROPHILS % 92.3 % (38.7-80.0); PLATELET COUNT 246 x10e3/uL (140-360); RED BLOOD COUNT 4.66 x10e6/uL (4.3-5.7); RED CELL DISTRIBUTION WIDTH 15.1 % (11.7-14.4)
[2019-11-16 19:49] LABS: ANION GAP 17.6 mmol/L (8-16); CALCIUM 8.5 mg/dL (8.4-10.2); CREATININE, SERUM 1.65 mg/dL (0.72-1.25); POTASSIUM 4.6 mmol/L (3.5-5.1)
[2019-11-16 19:50] VITALS: BP 143/83
[2019-11-16] MEDS: PIPER-TAZ 3.375 GM 50 ML IV SCH (20:00)
[2019-11-16 22:39] VITALS: BP 143/83
[2019-11-17] VITALS (9 sets, daily range): BP systolic 115–178; BP diastolic 61–90
[2019-11-17] MEDS: SOD CHL 0.45%/POT CHL 20MEQ 1,000 ML IV SCH (00:05)
[2019-11-17] MEDS: PIPER-TAZ 3.375 GM 50 ML IV SCH (04:00)
[2019-11-17] MEDS: DOCUSATE SODIUM 100 MG CAP PO SCH ×2 (08:40→17:05)
[2019-11-17] MEDS ORDERED: HYDROCODONE/APAP 10MG-325MG TAB PO PRN (08:45)
[2019-11-17] MEDS ORDERED: ONDANSETRON HCL 4 MG ORAL DISINTEGRATING TAB PO PRN (08:45)
[2019-11-17] MEDS ORDERED: ONDANSETRON HCL INJ 2MG/ML 2ML 2 MG/ML VIAL IV PRN (08:45)
[2019-11-17] MEDS ORDERED: MORPHINE SULFATE INJ 4 MG/ML INJ 1ML IV PRN (08:45)
[2019-11-17] MEDS ORDERED: DEXTROSE 50% SYRINGE 50 ML IV PRN (09:00)
[2019-11-17] MEDS: ESCITALOPRAM OXALATE 10 MG TAB PO SCH ×2 (09:20→17:05)
[2019-11-17] MEDS: MEROPENEM 1GM 100 ML IV SCH ×3 (09:20→22:00)
[2019-11-17] MEDS: HYDROXYZINE HCL 25 MG TAB PO SCH (09:20)
[2019-11-17] MEDS: BUPROPION HCL 75 MG TAB PO SCH ×3 (09:21→21:10)
[2019-11-17] MEDS: QUETIAPINE FUMARATE 100 MG TAB PO SCH ×2 (09:21→17:05)
[2019-11-17] MEDS: AMLODIPINE BESYLATE 10 MG TAB PO SCH (09:21)
[2019-11-17] MEDS: DIPHENHYDRAMINE HCL 25 MG CAP PO SCH ×2 (09:21→17:05)
[2019-11-17] MEDS: SODIUM CHLORIDE 0.45% 1,000 ML IV SCH ×3 (09:27→22:07)
[2019-11-17 09:50] LABS: BASOPHILS # (AUTO) 0.1 (0.0-0.1); BASOPHILS % 0.6 % (0.0-1.0); EOSINOPHILS # (AUTO) 0.1 (0.0-0.4); HEMATOCRIT 39.4 % (38.2-49.6); HEMOGLOBIN 11.7 g/dL (14.0-18.0); LYMPHOCYTES # (AUTO) 1.1 (1.0-3.2); LYMPHOCYTES % 7.7 % (18.0-39.1); MEAN CORPUSCULAR HEMOGLOBIN 24.9 pg (28-32); MEAN CORPUSCULAR HGB CONC 29.7 g/dL (31-35); MONOCYTES # (AUTO) 0.9 (0.2-0.8); MONOCYTES % 6.2 % (4.4-11.3); NEUTROPHILS # (AUTO) 12.1 (2.1-6.9); PLATELET COUNT 264 x10e3/uL (140-360); RED BLOOD COUNT 4.69 x10e6/uL (4.3-5.7); RED CELL DISTRIBUTION WIDTH 15.3 % (11.7-14.4)
[2019-11-17 10:06] LABS: CALCIUM 8.3 mg/dL (8.4-10.2); CREATININE, SERUM 1.37 mg/dL (0.72-1.25)
[2019-11-17] MEDS: INSULIN LISPRO 100 UNIT/1 ML 3ML VIAL SQ SCH ×3 (12:48→21:11)
[2019-11-17] MEDS: FLUCONAZOLE 200 MG/100 ML 100 ML IV SCH (17:05)
[2019-11-17] MEDS: INSULIN GLARGINE 100 UNITS/ML VIAL SQ SCH (17:06)
[2019-11-18] VITALS (8 sets, daily range): BP systolic 130–180; BP diastolic 77–93
[2019-11-18] MEDS: AMLODIPINE BESYLATE 10 MG TAB PO SCH (05:03)
[2019-11-18] MEDS: MEROPENEM 1GM 100 ML IV SCH ×3 (06:00→21:24)
[2019-11-18 06:07] LABS: ANION GAP 14.3 mmol/L (8-16); BASOPHILS # (AUTO) 0.1 (0.0-0.1); BASOPHILS % 0.9 % (0.0-1.0); CALCIUM 8.8 mg/dL (8.4-10.2); CREATININE, SERUM 1.25 mg/dL (0.72-1.25); EOSINOPHILS # (AUTO) 0.3 (0.0-0.4); HEMOGLOBIN 11.8 g/dL (14.0-18.0); LYMPHOCYTES # (AUTO) 1.6 (1.0-3.2); LYMPHOCYTES % 15.2 % (18.0-39.1); MEAN CORPUSCULAR HEMOGLOBIN 26.8 pg (28-32); MEAN CORPUSCULAR HGB CONC 31.1 g/dL (31-35); MEAN CORPUSCULAR VOLUME 86.2 fL (81-99); MONOCYTES # (AUTO) 0.8 (0.2-0.8); NEUTROPHILS # (AUTO) 7.6 (2.1-6.9); NEUTROPHILS % 72.5 % (38.7-80.0); PLATELET COUNT 230 x10e3/uL (140-360); POTASSIUM 4.3 mmol/L (3.5-5.1); RED BLOOD COUNT 4.41 x10e6/uL (4.3-5.7); RED CELL DISTRIBUTION WIDTH 15.4 % (11.7-14.4)
[2019-11-18] MEDS: INSULIN LISPRO 100 UNIT/1 ML 3ML VIAL SQ SCH ×4 (07:30→21:15)
[2019-11-18] MEDS: BUPROPION HCL 75 MG TAB PO SCH ×3 (08:12→21:15)
[2019-11-18] MEDS: ESCITALOPRAM OXALATE 10 MG TAB PO SCH ×2 (08:12→16:51)
[2019-11-18] MEDS: DOCUSATE SODIUM 100 MG CAP PO SCH ×2 (08:12→16:51)
[2019-11-18] MEDS: HYDROXYZINE HCL 25 MG TAB PO SCH (08:12)
[2019-11-18] MEDS: QUETIAPINE FUMARATE 100 MG TAB PO SCH ×2 (08:12→16:51)
[2019-11-18] MEDS: DIPHENHYDRAMINE HCL 25 MG CAP PO SCH ×2 (08:12→16:51)
[2019-11-18] MEDS: INSULIN GLARGINE 100 UNITS/ML VIAL SQ SCH ×2 (09:11→17:16)
[2019-11-18] MEDS: METOPROLOL TARTRATE 50 MG TAB PO SCH ×2 (09:30→16:52)
[2019-11-18] MEDS ORDERED: HYDRALAZINE HCL 25 MG TAB PO PRN (09:30)
[2019-11-18] MEDS: FLUCONAZOLE 200 MG/100 ML 100 ML IV SCH (16:51)
[2019-11-18] MEDS ORDERED: SODIUM CHLORIDE 0.9% 250ML 250 ML ONE (22:39)
[2019-11-19 01:04] VITALS: BP 138/78
[2019-11-19 04:00] VITALS: BP_SYST 113; BP_SYST 139; BP_DIAS 58; BP_DIAS 88
[2019-11-19] MEDS: MEROPENEM 1GM 100 ML IV SCH (05:39)
[2019-11-19] MEDS: INSULIN LISPRO 100 UNIT/1 ML 3ML VIAL SQ SCH ×2 (07:30→13:12)
[2019-11-19 08:48] VITALS: BP 176/95
[2019-11-19 08:50] VITALS: BP 176/95
[2019-11-19] MEDS ORDERED: TRIMETHOPRIM/SULFAMETHOXAZOLE 160-800 MG TAB PO SCH (10:00)
[2019-11-19] MEDS: DIPHENHYDRAMINE HCL 25 MG CAP PO SCH (10:16)
[2019-11-19] MEDS: HYDROXYZINE HCL 25 MG TAB PO SCH (10:16)
[2019-11-19] MEDS: INSULIN GLARGINE 100 UNITS/ML VIAL SQ SCH (10:16)
[2019-11-19] MEDS: BUPROPION HCL 75 MG TAB PO SCH (10:17)
[2019-11-19] MEDS: AMLODIPINE BESYLATE 10 MG TAB PO SCH (10:17)
[2019-11-19] MEDS: METOPROLOL TARTRATE 50 MG TAB PO SCH (10:17)
[2019-11-19] MEDS: DOCUSATE SODIUM 100 MG CAP PO SCH (10:17)
[2019-11-19] MEDS: QUETIAPINE FUMARATE 100 MG TAB PO SCH (10:17)
[2019-11-19] MEDS: ESCITALOPRAM OXALATE 10 MG TAB PO SCH (10:17)
[2019-11-19 12:30] VITALS: BP 98/64
== END 2019-11-19 14:01 | disposition home or self-care (01) | DRG 660 ==
LOC: OR 10:33 → PACU V 14:54 → MED/SURG 16:22
PROVIDERS: ADMIT Internal Medicine; ATTEND Internal Medicine
PROC: 0TC08ZZ Extirpation of Matter from Right Kidney, Via Natural or Artificial Opening Endoscopic (ICD-10-PCS; 2019-11-16)
PROC: 0TP98DZ Removal of Intraluminal Device from Ureter, Via Natural or Artificial Opening Endoscopic (ICD-10-PCS; 2019-11-16)
PROC: BT141ZZ Fluoroscopy of Kidneys, Ureters and Bladder using Low Osmolar Contrast (ICD-10-PCS; 2019-11-16)
PROC: 0TP98DZ Removal of Intraluminal Device from Ureter, Via Natural or Artificial Opening Endoscopic (ICD-10-PCS; principal; 2019-11-16 13:30)
PROC: 0T788DZ Dilation of Bilateral Ureters with Intraluminal Device, Via Natural or Artificial Opening Endoscopic (ICD-10-PCS; 2019-11-16 13:30)
DX: N13.6 Pyonephrosis (principal); Z68.42 Body mass index [BMI] 45.0-49.9, adult; Z87.442 Personal history of urinary calculi; N52.9 Male erectile dysfunction, unspecified; Z96.0 Presence of urogenital implants; Z11.59 Encounter for screening for other viral diseases; E66.01 Morbid (severe) obesity due to excess calories; E78.5 Hyperlipidemia, unspecified; D64.9 Anemia, unspecified; N32.81 Overactive bladder; B96.89 Other specified bacterial agents as the cause of diseases classified elsewhere; E11.22 Type 2 diabetes mellitus with diabetic chronic kidney disease; I12.9 Hypertensive chronic kidney disease with stage 1 through stage 4 chronic kidney disease, or unspecified chronic kidney disease; N18.9 Chronic kidney disease, unspecified; G47.33 Obstructive sleep apnea (adult) (pediatric)
CPT/HCPCS: 36415; 74420; 80048; 82948; 85025; 87086; 87186; 88300; 93005; 96372; C1766; C1769; C2617; J0330; J1100; J1450; J1580; J1956; J2001; J2250; J2270; J2370; J2405; J2543; J2710; J3010; J3410; J7050; U0002

== ENCOUNTER 2020-10-22 21:09 | Emergency (ER) | payer MEDICARE ==
[~2020-10-22] VITALS: Ht 182.9 cm; Wt 156.5 kg
[2020-10-22] MEDS ORDERED: KETOROLAC TROMETHAMINE 30 MG/ML VIAL IV STA (22:19)
[2020-10-22 22:59] LABS: BASOPHILS # (AUTO) 0.1 (0.0-0.1); BASOPHILS % 0.9 % (0.0-1.0); EOSINOPHILS # (AUTO) 0.3 (0.0-0.4); EOSINOPHILS % 3.1 % (0.0-6.0); HEMATOCRIT 36.3 % (38.2-49.6); HEMOGLOBIN 11.5 g/dL (14.0-18.0); LYMPHOCYTES # (AUTO) 1.8 (1.0-3.2); LYMPHOCYTES % 17.3 % (18.0-39.1); MEAN CORPUSCULAR HEMOGLOBIN 26.5 pg (28-32); MEAN CORPUSCULAR HGB CONC 31.7 g/dL (31-35); MEAN CORPUSCULAR VOLUME 83.6 fL (81-99); MONOCYTES # (AUTO) 0.8 (0.2-0.8); MONOCYTES % 7.6 % (4.4-11.3); NEUTROPHILS # (AUTO) 7.5 (2.1-6.9); NEUTROPHILS % 70.6 % (38.7-80.0); PLATELET COUNT 279 x10e3/uL (140-360); RED BLOOD COUNT 4.34 x10e6/uL (4.3-5.7); RED CELL DISTRIBUTION WIDTH 15.6 % (11.7-14.4)
[2020-10-22 23:13] LABS: ANION GAP 16.4 mmol/L (8-16); CALCIUM 8.9 mg/dL (8.4-10.2); CREATININE, SERUM 1.57 mg/dL (0.72-1.25); POTASSIUM 4.4 mmol/L (3.5-5.1)
[2020-10-23] MEDS ORDERED: LEVOFLOXACIN250 MG PO (00:09)
[2020-10-23 00:52] LABS: CLARITY,URINE CLOUDY (CLEAR); COLOR,URINE AMBER (YELLOW); KETONES,URINE NEGATIVE (NEGATIVE); LEUKOCYTE ESTERASE ,URINE LARGE (NEGATIVE); NITRITE,URINE NEGATIVE (NEGATIVE); PROTEIN,URINE DIPSTICK 2+ (NEGATIVE)
[2020-10-23 00:53] LABS: BACTERIA,URINE MANY /HPF; EPITHELIAL CELLS,URINE FEW /LPF; RBC,URINE >50 /HPF (0-5); URINE UROBILINOGEN 0.2 mg/dL (0.2 - 1); WBC,URINE (MAN) >50 /HPF (0-5)
[2020-10-23 01:24] VITALS: BP 158/71
== END 2020-10-23 01:33 | disposition home or self-care (01) ==
LOC: ER 22:00
DX: N45.1 Epididymitis (principal)
CPT/HCPCS: 36415; 76870; 80048; 81001; 85025; 87086; 87186; 93976; 99283